=== PATIENT | female | born 1985 | race Caucasian/White ===

== ENCOUNTER 2016-06-09 18:44 | Emergency (ER) | payer OTHER ==
[~2016-06-09] VITALS: Ht 165.1 cm; Wt 118.5 kg
[~2016-06-09 18:44] MED LIST: DIAZ-90 PO; HYDR-906 PO; IBUP800T25 PO; OXYC-209 PO; PRED20TA PO; TRAM50TA2 PO
[2016-06-09 18:56] VITALS: Ht 165.1 cm; Wt 118.5 kg
[2016-06-09] MEDS ORDERED: CYCL-319 PO (22:52)
[2016-06-09] MEDS ORDERED: LORAZEPAM 2 MG INJ IV ONE (23:00)
[2016-06-09 23:06] LABS: ADD SCAN DIFF NO
[2016-06-09 23:07] LABS: BASOPHILS % 0.4 % (0.0-2.0); EOSINOPHILS # 0.1 10^3/ul (0.0-0.5); EOSINOPHILS % 0.8 % (0.0-7.0); HEMATOCRIT 40.5 % (37.0-47.0); LYMPHOCYTES # 2.4 10^3/ul (0.8-2.9); LYMPHOCYTES % 24.2 % (15.0-51.0); MEAN CORPUSCULAR HEMOGLOBIN 26.9 pg (29.0-33.0); MEAN CORPUSCULAR HGB CONC 32.1 g/dl (32.0-37.0); MEAN CORPUSCULAR VOLUME 83.9 fl (82.0-101.0); MEAN PLATELET VOLUME 10.9 fl (7.4-10.4); MONOCYTE # 0.5 10^3/ul (0.3-0.9); MONOCYTES % 4.7 % (0.0-11.0); NEUTROPHIL # 6.9 10^3/ul (1.6-7.5); NEUTROPHILS % 69.6 % (39.0-77.0); PLATELET COUNT 372 10^3/UL (140-415); RED BLOOD COUNT 4.83 10^6/ul (4.20-5.40); RED CELL DISTRIBUTION WIDTH 12.9 % (11.5-14.5)
[2016-06-09 23:16] LABS: CHLORIDE 100 mmol/L (97-110); POTASSIUM 3.6 mmol/L (3.5-5.1); SODIUM 142 mmol/L (135-144)
[2016-06-09 23:18] LABS: CREATININE 0.64 mg/dl (0.44-1.00)
[2016-06-09 23:19] LABS: ADD UMIC YES; ANION GAP 19 (8-16); BLOOD UREA NITROGEN 10 mg/dl (7-20); CALCIUM 9.6 mg/dl (8.4-10.2); CARBON DIOXIDE 27 mmol/L (21-31); GLUCOSE 111 mg/dl (70-220); URINE BILIRUBIN (Dip) NEGATIVE (NEGATIVE); URINE BLOOD (Dip) TRACE (NEGATIVE); URINE COLOR LT. YELLOW (YELLOW); URINE GLUCOSE (Dip) NEGATIVE (NEGATIVE); URINE KETONES (Dip) NEGATIVE (NEGATIVE); URINE LEUKOCYTE ESTERASE (Dip) NEGATIVE (NEGATIVE); URINE NITRITE (Dip) NEGATIVE (NEGATIVE); URINE TOTAL PROTEIN (Dip) NEGATIVE (NEGATIVE); URINE UROBILINOGEN (Dip) 0.2 E.U./dL (0.1-1.0)
[2016-06-09 23:28] LABS: SQUAMOUS EPITHELIAL CELL,UR FEW
[2016-06-09 23:29] LABS: B-TYPE NATRIURETIC PEPTIDE 45 PG/ML (0-125)
--- NOTE | 2016-06-09 23:30 | RADRPT ---
PROCEDURE: US DVT. CLINICAL INDICATION: Bilateral lower extremity pain and swelling. TECHNIQUE: Multiple longitudinal and transverse images of the bilateral lower extremity veins were obtained with gannon scale and color Doppler imaging. 2D grayscale measurements with compression, co lulu Doppler flow, and augmentation was performed. The calf veins were interrogated as well. COMPARISON: No prior studies are available for comparison. FINDINGS: The bilateral common femoral, superficial femoral and popliteal veins are normally compressible thro ughout. Color flow demonstrates normal filling of the vessel. Normal waveforms are visualized and there is normal response to augmentation. The calf veins are visualized and are equally unremarkabl e. IMPRESSION: 1. No evidence of a deep vein thrombosis involving either lower extremity. RPTAT: HFN .Nicolasa Cain MD, Date Time Electronically viewed and signed by .Nicolasa Cain MD, MD on 06/09/2016 23:30 .N/
[2016-06-09 23:38] LABS: TROPONIN-I < 0.012 ng/ml (0.00-0.12)
--- NOTE | 2016-06-10 00:15 | RADRPT ---
PROCEDURE: XR Chest. CLINICAL INDICATION: Syncope. TECHNIQUE: Single frontal chest x-ray. COMPARISON: Chest radiograph 08/12/2015. FINDINGS: The cardiomediastinal silhouette is unremarkable. No pneumothorax, pleural effusion or consolidation is seen. No acute osseous abnormality is noted. IMPRESSION: 1. No acute cardiopulmonary abnormality. RPTAT: HFN .Nicolasa Cain MD, Date Time Electronically viewed and signed by .Nicolasa Cain MD, on 06/10/2016 00:15 .N/
[2016-06-10] MEDS ORDERED: FURO-110 PO (00:29)
--- NOTE | 2016-06-10 00:29 | ERD ---
ER Documentation Chief Complaint Date/Time DATE: 06/10/16 TIME: 00:27 Chief Complaint Syncopal episode x3 today, SOB, Swollen LE, Dizziness HPI This is a 31-year-old female with syncopal episode today secondary to pain from her cervical radiculopathy. She does notice increased leg swelling over the past month. She has a history of DVT in the past. Denies any chest pain. Denies any focal neurological complaints. Denies any other current issues. ROS All systems reviewed and are negative except as per history of present illness. Medications Home Meds Active Scripts Oxycodone HCl/Acetaminophen (Percocet 10-325 mg Tablet) 1 Each Tablet, 1 EACH PO QID, #14 TAB Prov:MARIA ISABEL AGUILAR MD 12/17/15 Reported Medications Cyclobenzaprine Hcl* (Cyclobenzaprine Hcl*) 10 Mg Tablet, 10 MG PO QHS, #30 TAB 06/09/16 Discontinued Scripts Tramadol HCl (Tramadol HCl) 50 Mg Tablet, 50 MG PO Q6 Y for PAIN, #20 TAB Prov:MARIA ISABEL AGUILAR MD 12/17/15 Prednisone* (Prednisone*) 20 Mg Tab, 40 MG PO DAILY for 5 Days, TAB Prov:MARIA ISABEL AGUILAR MD 12/17/15 Diazepam* (Valium*) 5 Mg Tablet, 5 MG PO Q8 Y for ANXIETY, #10 TAB Prov:RODO MILLER NP 12/16/15 Hydrocodone/Acetaminophen ([place] 5-325 Tablet) 1 Each Tablet, 1 TAB PO Q6H Y for PAIN, #7 TAB Prov:RODO MILLER NP 12/16/15 Tramadol HCl (Tramadol HCl) 50 Mg Tablet, 50 MG PO Q4 Y for PAIN, #20 TAB Prov:KETTY PARDO 08/13/15 Ibuprofen* (Motrin*) 800 Mg Tab, 800 MG PO Q6, #30 TAB Prov:KETTY PARDO 08/13/15 Allergies Allergies: Coded Allergies: No Known Allergy (Unverified , 06/09/16) PMhx/Soc History of Surgery: Yes (R Cyst Removal) Anesthesia Reaction: No Hx Neurological Disorder: No Hx Respiratory Disorders: Yes (PE) Hx Cardiac Disorders: No Hx Psychiatric Problems: No Hx Miscellaneous Medical Probl: No Hx Alcohol Use: No Hx Substance Use: No Hx Tobacco Use: No Physical Exam Vitals Vital Signs Date Time Temp Pulse Resp B/P Pulse Ox O2 Delivery O2 Flow Rate FiO2 06/09/16 18:56 97.6 91 22 148/85 98 Physical Exam Const: [] Head: Atraumatic Eyes: Normal Conjunctiva ENT: Normal External Ears, Nose and Mouth. Neck: Full range of motion..~ No meningismus. Resp: Clear to auscultation bilaterally Cardio: Regular rate and rhythm, no murmurs Abd: Soft, non tender, non distended. Normal bowel sounds Skin: No petechiae or rashes Back: No midline or flank tenderness Ext: 1+ pitting edema Neur: Awake and alert Psych: Normal Mood and Affect Result Diagram: 06/09/160 06/09/16 2300 Results 24 hrs Laboratory Tests Test 06/09/16 22:59 06/09/16 23:00 Bedside Glucose 103mg/dL Anion Gap 19 B-Type Natriuretic Peptide 45PG/ML Basophils # 0.010^3/ul Basophils % 0.4% Blood Urea Nitrogen 10mg/dl Calcium Level 9.6mg/dl Carbon Dioxide Level 27mmol/L Chloride Level 100mmol/L Creatinine 0.64mg/dl Eosinophils # 0.110^3/ul Eosinophils % 0.8% Glucose Level 111mg/dl Hematocrit 40.5% Hemoglobin 13.0g/dl Lymphocytes # 2.410^3/ul Lymphocytes % 24.2% Mean Corpuscular Hemoglobin 26.9pg Mean Corpuscular Hemoglobin Concent 32.1g/dl Mean Corpuscular Volume 83.9fl Mean Platelet Volume 10.9fl Monocytes # 0.510^3/ul Monocytes % 4.7% Neutrophils # 6.910^3/ul Neutrophils % 69.6% Nucleated Red Blood Cells # 0.010^3/ul Nucleated Red Blood Cells % 0.0/100WBC Platelet Count 04293^3/UL Potassium Level 3.6mmol/L Red Blood Count 4.8310^6/ul Red Cell Distribution Width 12.9% Sodium Level 142mmol/L Troponin I < 0.012ng/ml Urine Bilirubin NEGATIVE Urine Clarity CLEAR Urine Color LT. YELLOW Urine Glucose NEGATIVE% Urine Hemoglobin TRACE Urine Ketones NEGATIVE Urine Leukocyte Esterase NEGATIVE Urine Microscopic RBC 2-5/HPF Urine Microscopic WBC 0-2/HPF Urine Nitrite NEGATIVE Urine Specific [place] 1.025 Urine Squamous Epithelial Cells FEW Urine Total Protein NEGATIVE Urine Urobilinogen 0.2 E.U./dL Urine pH 6.0 White Blood Count 10.010^3/ul Current Medications Medications (Trade) Dose Ordered Sig/[place] Route PRN Reason Start Time Stop Time Status Last Admin Dose Admin Lorazepam (Ativan) 1 mg ONCE ONCE IV 06/09/16 23:00 06/09/16 23:01 DC Procedures/MDM EKG: Rate/Rhythm: Normal Sinus Rhythm QRS, ST, T-waves: No changes consistent w/ acute ischemia Impression: No evidence of ischemia or arrhythmia Chest X-ray 1V Interpreted by me: Soft Tissue: No acute abnormalities Bones: No acute abnormalities Mediastinum/Cardiac Silhouette/Lungs: No acute abnormalities DVT study is negative Medical decision-making: Patient has some lower extremity edema. No evidence of DVT. At this point she is feeling better. Anxiety seems to be at play here as well. Patient responded well to Ativan. She will be discharged home with Lasix for her lower extremity edema. She is to follow-up with her primary care physician. Return for worsening symptomatology. is at bedside and concurs with plan. Departure Diagnosis: Primary Impression: Syncope Syncope type: psychogenic syncope Qualified Code: F48.8 - Psychogenic syncope Additional Impression: Lower extremity edema Laterality: bilateral Qualified Code: R60.0 - Bilateral edema of lower extremity Condition: Stable KETTY PARDO BethSteve Jun 10, 2016 00:29
[2016-06-10 00:54] VITALS: BP 125/89; PULSE 96; RESP 18; TEMP 98.4
== END 2016-06-10 01:02 | disposition home or self-care (01) ==
LOC: E/R 18:44
DX: F48.8 Other specified nonpsychotic mental disorders (principal); R60.0 Localized edema; R40.2142 Coma scale, eyes open, spontaneous, at arrival to emergency department; R40.2252 Coma scale, best verbal response, oriented, at arrival to emergency department; R40.2362 Coma scale, best motor response, obeys commands, at arrival to emergency department; R06.02 Shortness of breath
CPT/HCPCS: 36415; 71010; 80048; 81001; 82962; 83880; 84484; 85025; 93005; 93970; 96374; J2060; Z7502; Z7610; 81003

== ENCOUNTER 2016-09-17 10:43 | Inpatient (IN) | payer OTHER ==
[~2016-09-17] VITALS: Ht 165.1 cm; Wt 118.2 kg
[2016-09-17] VITALS (26 sets, daily range): BP systolic 130–170; BP diastolic 70–99; PULSE 96–129; RESP 18–26; Ht 165.1 cm; Wt 118.2 kg
[~2016-09-17 10:43] MED LIST changes: +CYCL-319 PO; -DIAZ-90 PO; +FURO-110 PO; -HYDR-906 PO; -IBUP800T25 PO; -PRED20TA PO; -TRAM50TA2 PO
[2016-09-17] MEDS ORDERED: POLYMYXIN/BACITRACIN 1L IRRIG ONE (11:44)
[2016-09-17] MEDS ORDERED: GELATIN SIZE 100 SPONGE ONE (11:44)
[2016-09-17] MEDS ORDERED: THROMBIN 5000 UNIT VIAL ONE (11:44)
[2016-09-17] MEDS ORDERED: LIDOCAINE 2%/EPI 30 ML INJ ONE (11:50)
[2016-09-17] MEDS ORDERED: SUCCINYLCHOLINE CHLORIDE 100 MG/5 ML SYG IV ONE (12:18)
[2016-09-17] MEDS ORDERED: PROPOFOL 20 ML ONE (12:18)
[2016-09-17] MEDS ORDERED: FENTAnyl 50 MCG/ML VIAL ONE (12:18)
[2016-09-17] MEDS ORDERED: CEFAZOLIN 1 GM INJ ONE (12:18)
[2016-09-17] MEDS ORDERED: ROCURONIUM 50 MG INJ ONE (12:18)
[2016-09-17] MEDS ORDERED: METOCLOPRAMIDE 10 MG INJ ONE (12:18)
[2016-09-17] MEDS ORDERED: ONDANSETRON 4 MG INJ ONE (12:18)
[2016-09-17] MEDS ORDERED: LABETALOL HCL 20MG INJ IV PRN (13:30)
[2016-09-17] MEDS ORDERED: MEPERIDINE 25 MG INJ IV PRN (13:30)
[2016-09-17] MEDS ORDERED: ONDANSETRON 4 MG INJ IV PRN ×2 (13:30→16:00)
[2016-09-17] MEDS ORDERED: HYDROmorphONE (0.2 MG/ML) 10ML SYG IV PRN ×2 (13:30)
[2016-09-17] MEDS ORDERED: hydrALAzine 20 MG INJ IV PRN (13:30)
[2016-09-17] MEDS ORDERED: FENTAnyl 50 MCG/ML VIAL IV PRN (13:30)
[2016-09-17] MEDS: HYDROmorphONE (0.2 MG/ML) 10ML SYG IV PRN ×3 (14:14→14:38)
[2016-09-17] MEDS: FENTAnyl 50 MCG/ML VIAL IV PRN ×2 (15:19→15:57)
[2016-09-17] MEDS ORDERED: HYDROCODONE/APAP (10/325) TAB NGT PRN (16:00)
[2016-09-17] MEDS ORDERED: NALOXONE (0.4 MG/ML) INJ IV PRN (16:00)
[2016-09-17] MEDS ORDERED: HYDROmorphONE 0.2 MG/ML PCA IV SCH (16:00)
[2016-09-17] MEDS ORDERED: HYDROmorphONE 0.2 MG/ML PCA ONE (16:01)
--- NOTE | 2016-09-17 17:17 | RADRPT ---
PROCEDURE: Intraoperative fluoroscopy. CLINICAL INDICATION: Intraoperative fluoroscopy during cervical spine surgery. TECHNIQUE: 4 spot intraoperative fluoroscopic images were provided. The images were reviewed on a high-resolution PACS workstation. COMPARISON: None available FINDINGS: Multiple spot intraoperative fluoroscopic views were provided during all cervical spine surgery. Th e images demonstrate initial radiodense marker at the level of C5. Subsequent images demonstrate an terior cervical discectomy and fusion at C5-6. The total fluoroscopy time was 7.3 seconds. IMPRESSION: 1. Multiple spot intraoperative fluoroscopic views during cervical spine fusion were provided. 2. Please see operative report of the same day for further information. RPTAT: HGAS .Isam Summers MD, Date Time Electronically viewed and signed by .Isma Summers MD, MD on 09/17/2016 17:16 .S/
[2016-09-17] MEDS: CEFAZOLIN 1 GM/50 ML (PMX) 50 ML IVPB SCH ×2 (17:34→21:04)
[2016-09-17] MEDS: DEXTROSE 5%-LR 1,000 ML IV SCH (17:35)
--- NOTE | 2016-09-17 18:00 | HP ---
DATE OF ADMISSION: 09/17/2016 CHIEF COMPLAINT AND HISTORY OF PRESENT ILLNESS: The patient is a 31-year-old female with history of severe cervical spondylosis with myelopathy and cord compression. The patient recently was seen by Dr. Yoo as an outpatient. MRI of the C-spine dated 08/15/2016 shows acute left-sided C5 to C6 disk herniation with evidence of cord compression. The patient was brought into the hospital today and underwent C5 to C6 partial vertebrectomy and interbody fusion and anterior plating. The patient does have postoperative pain and has been started on Dilaudid [employer]OR [employer]UCATION. The patient did not have any ch est pain or shortness of breath. No reported leg pain. The patient is able to move all extremities . No reported recent fever or chills. No reported recent dizziness or syncope. No reported recent urinary or bowel complaint. REVIEW OF SYSTEMS: The rest of review of systems unremarkable. PAST SURGICAL HISTORY: The patient is status post benign cyst removed from right breast. ALLERGIES: NONE. SOCIAL HISTORY: No smoking, no alcohol. FAMILY HISTORY: Noncontributory. PAST MEDICAL HISTORY: The patient has history of pulmonary embolism due to oral contraceptive medic ation in 2013. PHYSICAL EXAMINATION: GENERAL: The patient is conscious, awake. VITAL SIGNS: Temperature 98.4, pulse 96, respirations 18, blood pressure 125/89, O2 saturation 97% on room air. HEENT AND NECK: No eye discharge or redness. Nose and ears normal. Oropharynx and neck examinatio n is deferred due to cervical collar. CHEST: Fairly clear. CARDIOVASCULAR: S1, S2 normal. No murmur. ABDOMEN: Soft, nondistended, nontender. EXTREMITIES: No leg edema. NEUROLOGIC: The patient is awake, alert, fairly oriented, moves all extremities. LABORATORY DATA: Done prior to surgery, sodium 137, potassium 4.7, BUN 17, creatinine 0.9, glucose 97. Liver enzymes normal. Coagulation profile normal. Hemoglobin 12.4, platelets 336, WBC 7.7. E KG unremarkable. Chest x-ray unremarkable. IMPRESSION: Acute left-sided C5 to C6 disk herniation with evidence of cord compression, status pos t C5 to C6 partial vertebrectomy with interbody fusion and anterior plating. The patient apparently also has spondylosis and moderate to severe degree of secondary central stenosis at the C5 to C6 le nicolette on recent MRI. PLAN: The patient will be started on clear liquid diet, which will be advanced as tolerated. The p atient will have Dilaudid [employer]UC[employer]. The patient will also be given IV fluid, IV Zofran and SCDs for DVT prophylaxis. The patient will receive IV cefazolin as per protocol. Will resume Percocet once her pain is controlled with the SUPERVISOR [employer]UCATION. Plan of care discussed with the patient's family. Dictated By: DELFINA HOOD/GERSON Conf#: [id number] DID#: [id number]
[2016-09-17] MEDS: HYDROmorphONE 0.2 MG/ML PCA IV SCH (19:52)
[2016-09-17] MEDS: CYCLOBENZAPRINE 10 MG TAB PO SCH (20:34)
[2016-09-17] MEDS: LORAZEPAM 2 MG INJ IV PRN (21:03)
[2016-09-17] MEDS ORDERED: METOPROLOL 5 MG INJ IV PRN (23:00)
[2016-09-18] VITALS (12 sets, daily range): BP systolic 125–150; BP diastolic 81–96; PULSE 63–130; RESP 16–20
[2016-09-18] MEDS: ONDANSETRON 4 MG INJ IV PRN ×2 (01:36→09:27)
[2016-09-18] MEDS: DEXTROSE 5%-LR 1,000 ML IV SCH ×2 (05:20→16:56)
[2016-09-18] MEDS: CEFAZOLIN 1 GM/50 ML (PMX) 50 ML IVPB SCH ×2 (06:18→13:46)
[2016-09-18] MEDS: HYDROmorphONE 0.2 MG/ML PCA IV SCH ×2 (06:56→15:08)
--- NOTE | 2016-09-18 06:59 | PREOPHP ---
DATE OF ADMISSION: 09/17/2016 HISTORY OF PRESENT ILLNESS: The patient is a 31 years of age female, arrived to the office with a c omplaint of neck pain, pain going to the shoulder down the left arm with weakness in the left hand, numbness in the 3rd, 4th, and 5th digits of the left hand. The patient ____ severe spondylosis with myelopathy. Conservative management was offered to the patient in the form of epidural injections which did not improve function. The patient was getting worse. The patient as developing more weak ness in the hand, was having more pain in the neck. She also failed physical therapy as well as the pain management. PAST MEDICAL HISTORY: Unremarkable. PAST SURGICAL HISTORY: Unremarkable. SOCIAL HISTORY: Denies use of drugs, alcohol, tobacco. ALLERGIES: PER CHART. MEDICATIONS: ____. FAMILY HISTORY: Unremarkable. REVIEW OF SYSTEMS: Additional 10-point review of systems conducted. Pertinent positives in the HPI , otherwise negative. PHYSICAL EXAMINATION: GENERAL: The patient is awake, alert, oriented, follows commands properly. HEENT: Head is atraumatic, normocephalic ____ intact. Pupils reactive. ____. Nose, sinuses, jesus th: No lesions, no bleeding. NECK: Supple, no thyromegaly, no JVD. ____. PULMONARY: ____. CARDIOVASCULAR: No JVD, no pedal edema noted. ABDOMEN: Soft without guarding ____. NEUROLOGIC: She is awake, alert, oriented. Follows commands appropriately. ____. Cranial nerves II through XII intact. No gross abnormalities noted. EXTREMITIES: Upper: Left deltoid 4/5 strength. Left bicep, tricep, ____ overall strength is abou t 4/5 ____ the patient has good strength and sensation. The patient has reduced sensation in the f irst 3 digits of the left hand. ____ unremarkable. Lower: She is able to move both lower extremi ties at the level of the hips ____ strength is equal, sensation is intact. IMAGING FINDINGS: MRI of the cervical spine on 08/15/2016, she has C5 to C6 severe spondylosis and cord compression. IMPRESSION: The patient is a pleasant 31-year-old female who has C5 to C6 severe spondylosis with m yelopathy and cord compression. RECOMMENDATION: For the patient to undergo surgical intervention in the form of C5-C6 partial verte brectomy with diskectomy, interbody fusion, and anterior plating. The procedure was described to th e patient in great detail. Complications were explained. The patient wants to go ahead and proceed with surgical intervention. The patient will be admitted to the hospital thereafter and for furthe r care and management. Dictated By: TAM HASSAN/GERSON Conf#: [id number] DID#: [id number]
[2016-09-18] MEDS: DIPHENHYDRAMINE 50 MG INJ IV PRN ×2 (12:15→17:01)
[2016-09-18] MEDS: OXYCODONE/ACETAMINOPHEN (5/325) TAB PO PRN ×2 (12:15→16:57)
--- NOTE | 2016-09-18 14:29 | RADRPT ---
Vent Rate: 125 bpm RR Interval: 0 msec [place] Interval: 184 msec QRS Duration: 78 msec QT Interval: 288 msec QTC Interval: 415 msec P-R-T [place]: 29 - 34 - 5 degrees Sinus tachycardia Cannot rule out Inferior infarct , age undetermined Abnormal ECG Electronically Signed By: Solis Ortez [id number]
--- NOTE | 2016-09-18 14:38 | RADRPT ---
Vent Rate: 102 bpm RR Interval: 0 msec MI Interval: 188 msec QRS Duration: 84 msec QT Interval: 332 msec QTC Interval: 432 msec P-R-T [place]: 29 - 37 - 9 degrees Sinus tachycardia Nonspecific T wave abnormality Abnormal ECG Electronically Signed By: Solis Ortez [id number]
--- NOTE | 2016-09-18 15:07 | PN ---
Date/Time of Note Date/Time of Note DATE: 09/18/16 TIME: 15:02 Assessment/Plan VTE Prophylaxis VTE Prophylaxis Intervention: SCD's Lines/Catheters IV Catheter Type (from Nrs): Peripheral IV Urinary Cath still in place: No Assessment/Plan Chief Complaint/Hosp Course Patient's complains of pain, encouraged to take Percocet in addition to FIBERGLASS LAMINATOR Dilaudid, patient is awake alert, complains of mild nausea relieved by Zofran, denies any vomiting denies chest pain denies shortness of breath. Problems: Assessment/Plan - Acute left-sided C5 to C6 disk herniation with evidence of cord compression, status post C5 to C6 partial vertebrectomy with interbody fusion and anterior plating. Continue Dilaudid FIBERGLASS LAMINATOR for pain Zofran as needed for nausea, follow-up surgical recommendations. Incentive spirometer every hour while patient is awake. - Morbid obesity. Further recommendations based on clinical course. Plan of care discussed with Dr. Hall. Exam/Review of Systems Vital Signs Vitals Vital Signs Date Time Temp Pulse Resp B/P Pulse Ox O2 Delivery O2 Flow Rate FiO2 09/18/16 12:34 101 09/18/16 11:22 97.5 19 142/96 97 09/18/16 08:30 Nasal Cannula 2.0 Intake and Output 09/17/16 09/17/16 09/18/16 15:00 23:00 07:00 Intake Total 700 ml 590 ml 890 ml Output Total 20 ml 500 ml 350 ml Balance 680 ml 90 ml 540 ml Exam Constitutional: alert, oriented Head: normocephalic Respiratory: other (Status post surgery with dry clean and intact dressing and cervical collar) Cardiovascular: other (Slightly tachycardic), regular rate and rhythm Gastrointestinal: non-tender, soft Extremities: normal pulses Neurological: nl mental status Results Results 24 hrs Laboratory Tests Test 09/18/16 06:38 Lab Scanned Report REFERENCE LAB Medications Medications Current Medications Dextrose/Lactated Ringer's 1,000 ml @ 75 mls/hr [id number] IV Last administered on 09/17/16 17:35; Admin Dose 75 MLS/HR; Start 09/17/16 at 16:00 Cefazolin Sodium (Ancef 1 Gm/50 ml (Pmx)) 50 ml @ 100 mls/hr Q8 IVPB Last administered on 09/18/16 13:46; Admin Dose 100 MLS/HR; Start 09/17/16 at 16:00 ; Stop 09/18/16 at 16:00 Naloxone HCl (Narcan) 0.2 mg PRN PRN IV DECREASED REPIRATORY RATE; Start at 16:00 Ondansetron HCl (Zofran Inj) 4 mg Q6H PRN IV NAUSEA AND/OR VOMITING Last administered on 09/18/16 09:27; Admin Dose 4 MG; Start 09/17/16 at 16:00 Diphenhydramine HCl (Benadryl) 25 mg Q6H PRN IV ITCHING Last administered on 12:15; Admin Dose 25 MG; Start 09/17/16 at 16:00 Miscellaneous Information 1. Discontinue FIBERGLASS LAMINATOR... FIBERGLASS LAMINATOR IV ; Start 09/17/16 at 16:00 Oxycodone/ Acetaminophen (Percocet (5/ 325)) 1 tab Q4H PRN PO PAIN Last administered on 09/18/16 12:15; Admin Dose 1 TAB; Start 09/17/16 at 17:30 Oxycodone/ Acetaminophen (Percocet (5/ 325)) 2 tab Q4H PRN PO PAIN; Start 09/17 at 17:30 Cyclobenzaprine HCl (Flexeril) 10 mg QHS PO Last administered on 09/17/16 20: 34; Admin Dose 10 MG; Start 09/17/16 at 21:00 Hydromorphone HCl (Dilaudid FIBERGLASS LAMINATOR) 6 mg Q4PCA IV Last administered on 09/18/16 06:56; Admin Dose 6 MG; Start 09/17/16 at 20:00; Stop 09/19/16 at 17:00 Lorazepam (Ativan) 1 mg Q6H PRN IV ANXIETY Last administered on 09/17/16 21:03 ; Admin Dose 1 MG; Start 09/17/16 at 20:30 Clonidine (Catapres) 0.1 mg Q6H PRN PO ELEVATED BLOOD PRESSURE; Start 09/17/16 at 20:30 Metoprolol Tartrate (Lopressor) 5 mg Q4H PRN IV ELEVATED BLOOD PRESSURE; Start 09/17/16 at 23:00 Diphenhydramine HCl (Benadryl) 50 mg Q6H PRN PO ITCHING; Start 09/18/16 at 11: 30 KUSH FONG Sep 18, 2016 15:07
[2016-09-18 15:38] LABS: ADD SCAN DIFF NO
[2016-09-18 15:41] LABS: BASOPHILS % 0.5 % (0.0-2.0); EOSINOPHILS # 0.1 10^3/ul (0.0-0.5); EOSINOPHILS % 0.7 % (0.0-7.0); HEMATOCRIT 34.2 % (37.0-47.0); HEMOGLOBIN 10.9 g/dl (12.0-16.0); LYMPHOCYTES # 1.7 10^3/ul (0.8-2.9); LYMPHOCYTES % 20.9 % (15.0-51.0); MEAN CORPUSCULAR HEMOGLOBIN 27.1 pg (29.0-33.0); MEAN CORPUSCULAR HGB CONC 31.9 g/dl (32.0-37.0); MEAN CORPUSCULAR VOLUME 85.1 fl (82.0-101.0); MEAN PLATELET VOLUME 10.9 fl (7.4-10.4); MONOCYTE # 0.6 10^3/ul (0.3-0.9); MONOCYTES % 7.1 % (0.0-11.0); NEUTROPHIL # 5.8 10^3/ul (1.6-7.5); NEUTROPHILS % 70.6 % (39.0-77.0); PLATELET COUNT 284 10^3/UL (140-415); RED BLOOD COUNT 4.02 10^6/ul (4.20-5.40); RED CELL DISTRIBUTION WIDTH 13.6 % (11.5-14.5); WHITE BLOOD COUNT 8.2 10^3/ul (4.8-10.8)
[2016-09-18 16:01] LABS: CALCIUM 9.2 mg/dl (8.4-10.2); CREATININE 0.75 mg/dl (0.44-1.00); POTASSIUM 3.7 mmol/L (3.5-5.1)
[2016-09-18] MEDS: CYCLOBENZAPRINE 10 MG TAB PO SCH (20:42)
[2016-09-18] MEDS: HYDROmorphONE 1 MG/ML SYG IV PRN (20:43)
[2016-09-18] MEDS: LORAZEPAM 2 MG INJ IV PRN (22:02)
[2016-09-19] VITALS (12 sets, daily range): BP systolic 116–146; BP diastolic 66–91; PULSE 96–112; RESP 18–20
[2016-09-19] MEDS: HYDROmorphONE 1 MG/ML SYG IV PRN ×5 (01:00→23:05)
[2016-09-19] MEDS: ONDANSETRON 4 MG INJ IV PRN ×3 (01:00→20:05)
[2016-09-19] MEDS: OXYCODONE/ACETAMINOPHEN (5/325) TAB PO PRN ×4 (04:03→20:37)
[2016-09-19] MEDS: DEXTROSE 5%-LR 1,000 ML IV SCH ×2 (05:56→21:20)
[2016-09-19 06:06] LABS: ADD SCAN DIFF NO
[2016-09-19 06:23] LABS: BASOPHILS % 0.5 % (0.0-2.0); EOSINOPHILS % 0.5 % (0.0-7.0); HEMATOCRIT 33.1 % (37.0-47.0); HEMOGLOBIN 10.7 g/dl (12.0-16.0); LYMPHOCYTES # 1.4 10^3/ul (0.8-2.9); LYMPHOCYTES % 19.2 % (15.0-51.0); MEAN CORPUSCULAR HEMOGLOBIN 27.4 pg (29.0-33.0); MEAN CORPUSCULAR HGB CONC 32.3 g/dl (32.0-37.0); MEAN CORPUSCULAR VOLUME 84.7 fl (82.0-101.0); MEAN PLATELET VOLUME 11.2 fl (7.4-10.4); MONOCYTE # 0.4 10^3/ul (0.3-0.9); MONOCYTES % 5.6 % (0.0-11.0); NEUTROPHIL # 5.4 10^3/ul (1.6-7.5); NEUTROPHILS % 73.9 % (39.0-77.0); PLATELET COUNT 287 10^3/UL (140-415); RED BLOOD COUNT 3.91 10^6/ul (4.20-5.40); RED CELL DISTRIBUTION WIDTH 13.5 % (11.5-14.5); WHITE BLOOD COUNT 7.3 10^3/ul (4.8-10.8)
[2016-09-19 06:37] LABS: CALCIUM 9.4 mg/dl (8.4-10.2); CREATININE 0.59 mg/dl (0.44-1.00); POTASSIUM 3.8 mmol/L (3.5-5.1)
[2016-09-19] MEDS: DIPHENHYDRAMINE 50 MG INJ IV PRN (09:27)
[2016-09-19] MEDS: LORAZEPAM 2 MG INJ IV PRN ×2 (12:16→23:49)
--- NOTE | 2016-09-19 12:16 | CONS ---
Date/Time of Note Date/Time of Note DATE: 09/19/16 TIME: 12:15 Assessment/Plan Assessment/Plan Additional Assessment/Plan seen/examined awake/alert/follows/moves all co pain shoulders with difficulty with left shoulder rom sp cervical partial vertebrectomy with fusion decadron mri c spine Consultation Date/Type/Reason Admit Date/Time Sep 17, 2016 at 10:43 Initial Consult Date Exam/Review of Systems Vital Signs Vitals Vital Signs Date Time Temp Pulse Resp B/P Pulse Ox O2 Delivery O2 Flow Rate FiO2 09/19/16 11:25 98.5 96 18 116/69 99 09/19/16 07:16 Nasal Cannula 2.0 Intake and Output 09/18/16 09/18/16 09/19/16 15:00 23:00 07:00 Intake Total 50 ml 1000 ml 900 ml Balance 50 ml 1000 ml 900 ml Results Result Diagram: 09/19/16 0543 09/19/16 0543 Results 24 hrs Laboratory Tests Test 09/18/16 15:30 09/19/16 05:43 White Blood Count 8.2 7.3 Red Blood Count 4.02 L 3.91 L Hemoglobin 10.9 L 10.7 L Hematocrit 34.2 L 33.1 L Mean Corpuscular Volume 85.1 84.7 Mean Corpuscular Hemoglobin 27.1 L 27.4 L Mean Corpuscular Hemoglobin Concent 31.9 L 32.3 Red Cell Distribution Width 13.6 13.5 Platelet Count 284 # 287 Mean Platelet Volume 10.9 H 11.2 H Neutrophils % 70.6 73.9 Lymphocytes % 20.9 19.2 Monocytes % 7.1 5.6 Eosinophils % 0.7 0.5 Basophils % 0.5 0.5 Nucleated Red Blood Cells % 0.0 0.0 Neutrophils # 5.8 5.4 Lymphocytes # 1.7 1.4 Monocytes # 0.6 0.4 Eosinophils # 0.1 0.0 Basophils # 0.0 0.0 Nucleated Red Blood Cells # 0.0 0.0 Sodium Level 139 138 Potassium Level 3.7 3.8 Chloride Level 101 102 Carbon Dioxide Level 30 26 Anion Gap 12 14 Blood Urea Nitrogen 6 L 5 L Creatinine 0.75 0.59 Glucose Level 111 113 Calcium Level 9.2 9.4 Medications Medications Current Medications Dextrose/Lactated Ringer's (D5-Lr) 1,000 ml @ 75 mls/hr [id number] IV Last administered on 09/19/16 05:56; Admin Dose 75 MLS/HR; Start 09/17/16 at 16:00 Naloxone HCl (Narcan) 0.2 mg PRN PRN IV DECREASED REPIRATORY RATE; Start at 16:00 Ondansetron HCl (Zofran Inj) 4 mg Q6H PRN IV NAUSEA AND/OR VOMITING Last administered on 09/19/16 09:25; Admin Dose 4 MG; Start 09/17/16 at 16:00 Diphenhydramine HCl (Benadryl) 25 mg Q6H PRN IV ITCHING Last administered on 09:27; Admin Dose 25 MG; Start 09/17/16 at 16:00 Miscellaneous Information 1. Discontinue COMPUTERIZED MILL MILL RECORDER... COMPUTERIZED MILL MILL RECORDER IV ; Start 09/17/16 at 16:00 Oxycodone/ Acetaminophen (Percocet (5/ 325)) 1 tab Q4H PRN PO PAIN Last administered on 09/18/16 12:15; Admin Dose 1 TAB; Start 09/17/16 at 17:30 Oxycodone/ Acetaminophen (Percocet (5/ 325)) 2 tab Q4H PRN PO PAIN Last administered on 09/19/16 08:39; Admin Dose 2 TAB; Start 09/17/16 at 17:30 Cyclobenzaprine HCl (Flexeril) 10 mg QHS PO Last administered on 09/18/16 20: 42; Admin Dose 10 MG; Start 09/17/16 at 21:00 Lorazepam (Ativan) 1 mg Q6H PRN IV ANXIETY Last administered on 09/18/16 22:02 ; Admin Dose 1 MG; Start 09/17/16 at 20:30 Clonidine (Catapres) 0.1 mg Q6H PRN PO ELEVATED BLOOD PRESSURE; Start 09/17/16 at 20:30 Metoprolol Tartrate (Lopressor) 5 mg Q4H PRN IV ELEVATED BLOOD PRESSURE; Start 09/17/16 at 23:00 Diphenhydramine HCl (Benadryl) 50 mg Q6H PRN PO ITCHING; Start 09/18/16 at 11: 30 Hydromorphone HCl (Dilaudid) 1 mg Q4H PRN IV SEVERE PAIN LEVEL 7-10 Last administered on 09/19/16t 11:30; Admin Dose 1 MG; Start 09/18/16 at 20:00 GIANCARLO DIAZ PA-C Sep 19, 2016 12:16
--- NOTE | 2016-09-19 13:56 | RADRPT ---
PROCEDURE: MR Cervical Spine without contrast. CLINICAL INDICATION: Neck and left arm pain. History of cervical fusion. Rule TECHNIQUE: An MRI of the cervical spine was performed on a 1.5 [place]ingo scanner utilizing the follow ing sequences: Pre and postcontrast sagittal and axial T1 weighted, sagittal and axial T2 weighted, and sagittal T2 weighted with fat saturation. COMPARISON: No prior study for comparison. The FINDINGS:. 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 Anterior cervical discectomy fusion of C5 and C6. The vertebral bodies are normal in height and signal inten sity. The cervical cord is normal in caliber and signal intensity. The craniocervical junction is u nremarkable. C2-3: The intervertebral disc is normal without foraminal or canal narrowing. C3-4: Mild disk desiccation loss of disk height with small central disk protrusion measuring 1-2 mm in AP dimension. This effaces the CSF along the ventral aspect of the cervical spinal cord with mod erate central canal stenosis of 7 mm in AP dimension. No foraminal stenosis. C4-5: Mild disk desiccation and mild to moderate loss of disk height and minimal posterior disk bulg ing. This effaces the CSF along the ventral aspect of the cervical spinal cord resulting in moderat e central canal stenosis of 7 mm in AP dimension. No significant foraminal stenosis . C5-6: Intact ACDF posterior spondylitic ridging and bilateral uncovertebral joint hypertrophy witho ut foraminal stenosis. Moderate central canal narrowing 7 mm in AP dimension C6-7: Intact ACDF with anatomic alignment. Mild disk desiccation without loss of disk height. Rule small central disk protrusion measuring 2 mm in AP dimension. Moderate central canal stenosis of 6 .7 mm in AP fashion. C7-T1: The intervertebral disc is normal without foraminal or canal narrowing. No paraspinal soft tissue abnormality. IMPRESSION: 1. 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 This results in moderate central canal stenosis of 7 meters in AP dim ension from C3-C4 through C5-C6 and 6.7 mm in AP dimension at C6-C7. Stenosis at any level. 2. Intact ACDF C5-C6 with anatomic alignment. 3. Normal appearance of the cervical spinal cord. RPTAT:AAJJ Shirley Ariza Physician Date Time Electronically viewed and signed by Shirley Ariza Physician on 09/19/2016 13:56 JANELLE/
[2016-09-19] MEDS ORDERED: HYDROCODONE/APAP (5/325) TAB PO PRN ×2 (17:00)
[2016-09-19] MEDS: DEXAMETHASONE 4 MG/ML 1 ML INJ IV SCH ×2 (17:54→23:51)
--- NOTE | 2016-09-19 20:42 | PN ---
Date/Time of Note Date/Time of Note DATE: 09/19/16 TIME: 15:12 Assessment/Plan VTE Prophylaxis VTE Prophylaxis Intervention: other Lines/Catheters IV Catheter Type (from Nrsg): Peripheral IV Urinary Cath still in place: No Assessment/Plan Assessment/Plan - Acute left-sided C5 to C6 disk herniation with evidence of cord compression, status post C5 to C6 partial vertebrectomy with interbody fusion and anterior plating. 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 Incentive spirometer every hour while patient is awake. - Morbid obesity. Further recommendations based on clinical course. Plan of care discussed with Dr. Hall. Subjective 24 Hr Interval Summary Free Text/Dictation resting, afebrile, Exam/Review of Systems Vital Signs Vitals Vital Signs Date Time Temp Pulse Resp B/P Pulse Ox O2 Delivery O2 Flow Rate FiO2 09/19/16 15:00 98.1 113 18 120/78 99 09/19/16 07:16 Nasal Cannula 2.0 Intake and Output 09/18/16 09/18/16 09/19/16 15:00 23:00 07:00 Intake Total 50 ml 1000 ml 900 ml Balance 50 ml 1000 ml 900 ml Results Result Diagram: 09/19/16 0543 09/19/16 0543 Results 24 hrs Laboratory Tests Test 09/18/16 15:30 09/19/16 05:43 White Blood Count 8.2 7.3 Red Blood Count 4.02 L 3.91 L Hemoglobin 10.9 L 10.7 L Hematocrit 34.2 L 33.1 L Mean Corpuscular Volume 85.1 84.7 Mean Corpuscular Hemoglobin 27.1 L 27.4 L Mean Corpuscular Hemoglobin Concent 31.9 L 32.3 Red Cell Distribution Width 13.6 13.5 Platelet Count 284 # 287 Mean Platelet Volume 10.9 H 11.2 H Neutrophils % 70.6 73.9 Lymphocytes % 20.9 19.2 Monocytes % 7.1 5.6 Eosinophils % 0.7 0.5 Basophils % 0.5 0.5 Nucleated Red Blood Cells % 0.0 0.0 Neutrophils # 5.8 5.4 Lymphocytes # 1.7 1.4 Monocytes # 0.6 0.4 Eosinophils # 0.1 0.0 Basophils # 0.0 0.0 Nucleated Red Blood Cells # 0.0 0.0 Sodium Level 139 138 Potassium Level 3.7 3.8 Chloride Level 101 102 Carbon Dioxide Level 30 26 Anion Gap 12 14 Blood Urea Nitrogen 6 L 5 L Creatinine 0.75 0.59 Glucose Level 111 113 Calcium Level 9.2 9.4 Medications Medications Current Medications Dextrose/Lactated Ringer's (D5-Lr) 1,000 ml @ 75 mls/hr [id number] IV Last administered on 09/19/16 05:56; Admin Dose 75 MLS/HR; Start 09/17/16 at 16:00 Naloxone HCl (Narcan) 0.2 mg PRN PRN IV DECREASED REPIRATORY RATE; Start at 16:00 Ondansetron HCl (Zofran Inj) 4 mg Q6H PRN IV NAUSEA AND/OR VOMITING Last administered on 09/19/16 09:25; Admin Dose 4 MG; Start 09/17/16 at 16:00 Diphenhydramine HCl (Benadryl) 25 mg Q6H PRN IV ITCHING Last administered on 09:27; Admin Dose 25 MG; Start 09/17/16 at 16:00 Miscellaneous Information 1. Discontinue COMMUNICATIONS TOWER TECHNICIAN... COMMUNICATIONS TOWER TECHNICIAN IV ; Start 09/17/16 at 16:00 Oxycodone/ Acetaminophen (Percocet (5/ 325)) 1 tab Q4H PRN PO PAIN Last administered on 09/18/16 12:15; Admin Dose 1 TAB; Start 09/17/16 at 17:30 Oxycodone/ Acetaminophen (Percocet (5/ 325)) 2 tab Q4H PRN PO PAIN Last administered on 09/19/16 14:27; Admin Dose 2 TAB; Start 09/17/16 at 17:30 Cyclobenzaprine HCl (Flexeril) 10 mg QHS PO Last administered on 09/18/16 20: 42; Admin Dose 10 MG; Start 09/17/16 at 21:00 Lorazepam (Ativan) 1 mg Q6H PRN IV ANXIETY Last administered on 09/19/16 12:16 ; Admin Dose 1 MG; Start 09/17/16 at 20:30 Clonidine (Catapres) 0.1 mg Q6H PRN PO ELEVATED BLOOD PRESSURE; Start 09/17/16 at 20:30 Metoprolol Tartrate (Lopressor) 5 mg Q4H PRN IV ELEVATED BLOOD PRESSURE; Start 09/17/16 at 23:00 Diphenhydramine HCl (Benadryl) 50 mg Q6H PRN PO ITCHING; Start 09/18/16 at 11: 30 Hydromorphone HCl (Dilaudid) 1 mg Q4H PRN IV SEVERE PAIN LEVEL 7-10 Last administered on 09/19/16t 11:30; Admin Dose 1 MG; Start 09/18/16 at 20:00 Dexamethasone (Decadron) 4 mg Q6 IV ; Start 09/19/16 at 18:00 MANSOOR MARRERO Sep 19, 2016 15:23
[2016-09-19] MEDS: CYCLOBENZAPRINE 10 MG TAB PO SCH (22:29)
[2016-09-20] VITALS (11 sets, daily range): BP systolic 128–134; BP diastolic 70–90; PULSE 90–117; RESP 15–19
[2016-09-20] MEDS: DEXAMETHASONE 4 MG/ML 1 ML INJ IV SCH ×3 (06:04→17:31)
[2016-09-20 07:35] LABS: ADD SCAN DIFF NO
[2016-09-20 07:46] LABS: BASOPHILS % 0.2 % (0.0-2.0); HEMATOCRIT 37.3 % (37.0-47.0); LYMPHOCYTES # 0.9 10^3/ul (0.8-2.9); LYMPHOCYTES % 9.6 % (15.0-51.0); MEAN CORPUSCULAR HGB CONC 32.2 g/dl (32.0-37.0); MEAN CORPUSCULAR VOLUME 83.8 fl (82.0-101.0); MEAN PLATELET VOLUME 11.6 fl (7.4-10.4); MONOCYTE # 0.1 10^3/ul (0.3-0.9); MONOCYTES % 1.2 % (0.0-11.0); NEUTROPHILS % 88.7 % (39.0-77.0); PLATELET COUNT 383 10^3/UL (140-415); RED BLOOD COUNT 4.45 10^6/ul (4.20-5.40); RED CELL DISTRIBUTION WIDTH 12.9 % (11.5-14.5)
[2016-09-20 07:57] LABS: CREATININE 0.52 mg/dl (0.44-1.00); POTASSIUM 3.9 mmol/L (3.5-5.1)
[2016-09-20] MEDS: DEXTROSE 5%-LR 1,000 ML IV SCH (08:00)
[2016-09-20] MEDS: HYDROmorphONE 1 MG/ML SYG IV PRN ×4 (08:03→23:12)
[2016-09-20] MEDS: LORAZEPAM 2 MG INJ IV PRN (08:03)
[2016-09-20] MEDS: OXYCODONE/ACETAMINOPHEN (5/325) TAB PO PRN ×3 (12:25→20:55)
[2016-09-20] MEDS ORDERED: GUAIFENESIN 20 MG/ML 5ML CUP PO PRN (15:30)
[2016-09-20] MEDS ORDERED: SALINE 0.65% 45 ML NAS SPRAY NASAL PRN (15:30)
[2016-09-20] MEDS: DIPHENHYDRAMINE 50 MG INJ IV PRN (17:31)
[2016-09-20] MEDS: ONDANSETRON 4 MG INJ IV PRN ×2 (17:36→23:13)
--- NOTE | 2016-09-20 17:43 | PN ---
Date/Time of Note Date/Time of Note DATE: 09/20/16 TIME: 17:42 Assessment/Plan Lines/Catheters IV Catheter Type (from Nrsg): Peripheral IV Urinary Cath still in place: No Assessment/Plan Assessment/Plan - Acute left-sided C5 to C6 disk herniation with evidence of cord compression, status post C5 to C6 partial vertebrectomy with interbody fusion and anterior plating. Continue Dilaudid CPHT for pain Zofran as needed for nausea, follow-up surgical recommendations. Incentive spirometer every hour while patient is awake. - Morbid obesity. - weight management Further recommendations based on clinical course. Plan of care discussed with Dr. Hall. Subjective 24 Hr Interval Summary Respiratory: no complaints Cardiovascular: no complaints Gastrointestinal: no complaints Genitourinary: no complaints Musculoskeletal: no complaints Neurologic: other (neck pain) Exam/Review of Systems Vital Signs Vitals Vital Signs Date Time Temp Pulse Resp B/P Pulse Ox O2 Delivery O2 Flow Rate FiO2 09/20/16 16:35 117 09/20/16 12:27 97.9 16 132/70 91 Nasal Cannula 09/20/16 08:15 2.0 Intake and Output 09/19/16 09/19/16 09/20/16 15:00 23:00 07:00 Intake Total 1000 ml Balance 1000 ml Exam Constitutional: alert, well developed Neck: other Respiratory: clear to auscultation, normal air movement Cardiovascular: nl pulses, regular rate and rhythm Gastrointestinal: non-tender, soft Extremities: normal pulses Neurological: nl mental status, nl speech Results Result Diagram: 09/20/16 0626 09/20/16 0626 Results 24 hrs Laboratory Tests Test 09/20/16 06:11 09/20/16 06:26 Lab Scanned Report REFERENCE LAB White Blood Count 9.0 # Red Blood Count 4.45 Hemoglobin 12.0 Hematocrit 37.3 Mean Corpuscular Volume 83.8 Mean Corpuscular Hemoglobin 27.0 L Mean Corpuscular Hemoglobin Concent 32.2 Red Cell Distribution Width 12.9 Platelet Count 383 # Mean Platelet Volume 11.6 H Neutrophils % 88.7 H Lymphocytes % 9.6 L Monocytes % 1.2 Eosinophils % 0.0 Basophils % 0.2 Nucleated Red Blood Cells % 0.0 Neutrophils # 8.0 H Lymphocytes # 0.9 Monocytes # 0.1 L Eosinophils # 0.0 Basophils # 0.0 Nucleated Red Blood Cells # 0.0 Sodium Level 137 Potassium Level 3.9 Chloride Level 101 Carbon Dioxide Level 26 Anion Gap 14 Blood Urea Nitrogen 5 L Creatinine 0.52 Glucose Level 187 Calcium Level 10.0 Medications Medications Current Medications Naloxone HCl (Narcan) 0.2 mg PRN PRN IV DECREASED REPIRATORY RATE; Start at 16:00 Ondansetron HCl (Zofran Inj) 4 mg Q6H PRN IV NAUSEA AND/OR VOMITING Last administered on 09/20/16 17:36; Admin Dose 4 MG; Start 09/17/16 at 16:00 Diphenhydramine HCl (Benadryl) 25 mg Q6H PRN IV ITCHING Last administered on 17:31; Admin Dose 25 MG; Start 09/17/16 at 16:00 Miscellaneous Information 1. Discontinue CPHT... CPHT IV ; Start 09/17/16 at 16:00 Oxycodone/ Acetaminophen (Percocet (5/ 325)) 1 tab Q4H PRN PO PAIN Last administered on 09/20/16 16:19; Admin Dose 1 TAB; Start 09/17/16 at 17:30 Oxycodone/ Acetaminophen (Percocet (5/ 325)) 2 tab Q4H PRN PO PAIN Last administered on 09/20/16 12:25; Admin Dose 2 TAB; Start 09/17/16 at 17:30 Cyclobenzaprine HCl (Flexeril) 10 mg QHS PO Last administered on 09/19/16 22: 29; Admin Dose 10 MG; Start 09/17/16 at 21:00 Lorazepam (Ativan) 1 mg Q6H PRN IV ANXIETY Last administered on 09/20/16 08:03 ; Admin Dose 1 MG; Start 09/17/16 at 20:30 Clonidine (Catapres) 0.1 mg Q6H PRN PO ELEVATED BLOOD PRESSURE; Start 09/17/16 at 20:30 Metoprolol Tartrate (Lopressor) 5 mg Q4H PRN IV ELEVATED BLOOD PRESSURE; Start 09/17/16 at 23:00 Diphenhydramine HCl (Benadryl) 50 mg Q6H PRN PO ITCHING; Start 09/18/16 at 11: 30 Hydromorphone HCl (Dilaudid) 1 mg Q4H PRN IV SEVERE PAIN LEVEL 7-10 Last administered on 09/20/16 08:03; Admin Dose 1 MG; Start 09/18/16 at 20:00 Dexamethasone (Decadron) 4 mg Q6 IV Last administered on 09/20/16 17:31; Admin Dose 4 MG; Start 09/19/16 at 18:00 Sodium Chloride (Deep Sea) 1 spray BID PRN NASAL nasal dryness; Start 09/20/16 at 15:30 Guaifenesin (Robitussin Liquid Cup) 100 mg Q4H PRN PO COUGH Last administered on 09/20/16 16:18; Admin Dose 100 MG; Start 09/20/16 at 15:30 MANSOOR MARRERO Sep 20, 2016 17:43
[2016-09-20] MEDS: CYCLOBENZAPRINE 10 MG TAB PO SCH (20:51)
--- NOTE | 2016-09-20 22:08 | RADRPT ---
PROCEDURE: XR Chest. CLINICAL INDICATION: Chest pain TECHNIQUE: AP Portable chest. COMPARISON: 06/09/16 FINDINGS: The cardiomediastinal silhouette is normal. There is minimal hazy opacity at the left lung base Th e osseous structures are unremarkable. IMPRESSION: Minimal hazy left base opacity likely due to trace effusion and atelectasis. RPTAT: HIKT .Venu Galvez MD, MD Date Time Electronically viewed and signed by .Venu Galvez MD, on 09/20/2016 22:08 .T/
[2016-09-20] MEDS: DIPHENHYDRAMINE 50 MG CAP PO PRN (23:13)
[2016-09-21] VITALS (10 sets, daily range): BP systolic 113–146; BP diastolic 68–86; PULSE 80–94; RESP 19–20
[2016-09-21] MEDS: DEXAMETHASONE 4 MG/ML 1 ML INJ IV SCH ×4 (00:19→17:40)
[2016-09-21] MEDS: OXYCODONE/ACETAMINOPHEN (5/325) TAB PO PRN ×3 (03:23→19:59)
[2016-09-21 06:46] LABS: ADD SCAN DIFF NO
[2016-09-21 06:58] LABS: BASOPHILS % 0.1 % (0.0-2.0); HEMATOCRIT 34.1 % (37.0-47.0); HEMOGLOBIN 11.1 g/dl (12.0-16.0); LYMPHOCYTES # 1.3 10^3/ul (0.8-2.9); LYMPHOCYTES % 7.8 % (15.0-51.0); MEAN CORPUSCULAR HGB CONC 32.6 g/dl (32.0-37.0); MEAN PLATELET VOLUME 12.3 fl (7.4-10.4); MONOCYTE # 0.2 10^3/ul (0.3-0.9); MONOCYTES % 1.4 % (0.0-11.0); NEUTROPHIL # 14.4 10^3/ul (1.6-7.5); NEUTROPHILS % 89.9 % (39.0-77.0); NUCLEATED RED BLOOD CELLS% 0.2 /100WBC (0.0-0.0); PLATELET COUNT 373 10^3/UL (140-415); RED BLOOD COUNT 4.11 10^6/ul (4.20-5.40); RED CELL DISTRIBUTION WIDTH 13.1 % (11.5-14.5)
[2016-09-21 07:38] LABS: CALCIUM 9.9 mg/dl (8.4-10.2); CREATININE 0.54 mg/dl (0.44-1.00); POTASSIUM 4.4 mmol/L (3.5-5.1)
[2016-09-21] MEDS: HYDROmorphONE 1 MG/ML SYG IV PRN ×4 (08:16→23:00)
[2016-09-21] MEDS: ONDANSETRON 4 MG INJ IV PRN ×2 (08:16→17:40)
[2016-09-21] MEDS: DIPHENHYDRAMINE 50 MG CAP PO PRN (08:16)
--- NOTE | 2016-09-21 13:44 | PN ---
Date/Time of Note Date/Time of Note DATE: 09/21/16 TIME: 13:41 Assessment/Plan VTE Prophylaxis VTE Prophylaxis Intervention: SCD's Lines/Catheters IV Catheter Type (from Nrs): Peripheral IV Urinary Cath still in place: No Assessment/Plan Chief Complaint/Hosp Course Patient discouraged encouraged to take Percocet, continue IV Dilaudid for breakthrough pain. Patient remains hemodynamically stable. Assessment/Plan - Acute left-sided C5 to C6 disk herniation with evidence of cord compression, status post C5 to C6 partial vertebrectomy with interbody fusion and anterior plating. Continue to follow-up surgical recommendation. Continue Percocet and Dilaudid as needed for breakthrough pain. Advance diet to regular. Start physical therapy. - Morbid obesity. Further recommendations based on clinical course. Plan of care discussed with Dr. Hall. Problems: Exam/Review of Systems Vital Signs Vitals Vital Signs Date Time Temp Pulse Resp B/P Pulse Ox O2 Delivery O2 Flow Rate FiO2 09/21/16 12:16 80 09/21/16 08:00 Nasal Cannula 2.0 09/21/16 04:11 97.2 19 113/68 95 Intake and Output 09/20/16 09/20/16 09/21/16 15:00 23:00 07:00 Intake Total 380 ml Balance 380 ml Exam Constitutional: alert, oriented Head: normocephalic Neck: other (Surgical history incision was dry clean and intact dressing and cervical collar), supple Cardiovascular: nl pulses Gastrointestinal: non-tender Musculoskeletal: nl extremities to inspection Extremities: normal pulses Results Result Diagram: 09/21/16 0540 09/21/16 0540 Results 24 hrs Laboratory Tests Test 09/21/16 05:40 White Blood Count 16.0 #H Red Blood Count 4.11 L Hemoglobin 11.1 L Hematocrit 34.1 L Mean Corpuscular Volume 83.0 Mean Corpuscular Hemoglobin 27.0 L Mean Corpuscular Hemoglobin Concent 32.6 Red Cell Distribution Width 13.1 Platelet Count 373 Mean Platelet Volume 12.3 H Neutrophils % 89.9 H Lymphocytes % 7.8 L Monocytes % 1.4 Eosinophils % 0.0 Basophils % 0.1 Nucleated Red Blood Cells % 0.2 H Neutrophils # 14.4 H Lymphocytes # 1.3 Monocytes # 0.2 L Eosinophils # 0.0 Basophils # 0.0 Nucleated Red Blood Cells # 0.0 Sodium Level 159 #H Potassium Level 4.4 Chloride Level 104 Carbon Dioxide Level 22 Anion Gap 37 #H Blood Urea Nitrogen 11 Creatinine 0.54 Glucose Level 168 Calcium Level 9.9 Medications Medications Current Medications Naloxone HCl (Narcan) 0.2 mg PRN PRN IV DECREASED REPIRATORY RATE; Start at 16:00 Ondansetron HCl (Zofran Inj) 4 mg Q6H PRN IV NAUSEA AND/OR VOMITING Last administered on 09/21/16 08:16; Admin Dose 4 MG; Start 09/17/16 at 16:00 Diphenhydramine HCl (Benadryl) 25 mg Q6H PRN IV ITCHING Last administered on 17:31; Admin Dose 25 MG; Start 09/17/16 at 16:00 Miscellaneous Information 1. Discontinue SUPERINTENDENT COMMISSARY... SUPERINTENDENT COMMISSARY IV ; Start 09/17/16 at 16:00 Oxycodone/ Acetaminophen (Percocet (5/ 325)) 1 tab Q4H PRN PO PAIN Last administered on 09/20/16 16:19; Admin Dose 1 TAB; Start 09/17/16 at 17:30 Oxycodone/ Acetaminophen (Percocet (5/ 325)) 2 tab Q4H PRN PO PAIN Last administered on 09/21/16 03:23; Admin Dose 2 TAB; Start 09/17/16 at 17:30 Cyclobenzaprine HCl (Flexeril) 10 mg QHS PO Last administered on 09/20/16 20: 51; Admin Dose 10 MG; Start 09/17/16 at 21:00 Lorazepam (Ativan) 1 mg Q6H PRN IV ANXIETY Last administered on 09/20/16 08:03 ; Admin Dose 1 MG; Start 09/17/16 at 20:30 Clonidine (Catapres) 0.1 mg Q6H PRN PO ELEVATED BLOOD PRESSURE; Start 09/17/16 at 20:30 Metoprolol Tartrate (Lopressor) 5 mg Q4H PRN IV ELEVATED BLOOD PRESSURE; Start 09/17/16 at 23:00 Diphenhydramine HCl (Benadryl) 50 mg Q6H PRN PO ITCHING Last administered on 08:16; Admin Dose 50 MG; Start 09/18/16 at 11:30 Hydromorphone HCl (Dilaudid) 1 mg Q4H PRN IV SEVERE PAIN LEVEL 7-10 Last administered on 09/21/16 12:19; Admin Dose 1 MG; Start 09/18/16 at 20:00 Dexamethasone (Decadron) 4 mg Q6 IV Last administered on 09/21/16 12:18; Admin Dose 4 MG; Start 09/19/16 at 18:00 Sodium Chloride (Deep Sea) 1 spray BID PRN NASAL nasal dryness; Start 09/20/16 at 15:30 Guaifenesin (Robitussin Liquid Cup) 100 mg Q4H PRN PO COUGH Last administered on 09/20/16 16:18; Admin Dose 100 MG; Start 09/20/16 at 15:30 KUSH FONG Sep 21, 2016 13:44
[2016-09-21] MEDS: DIPHENHYDRAMINE 50 MG INJ IV PRN (17:40)
[2016-09-21] MEDS: CYCLOBENZAPRINE 10 MG TAB PO SCH (20:37)
--- NOTE | 2016-09-21 21:16 | CONS ---
Date/Time of Note Date/Time of Note DATE: 09/21/16 TIME: 21:14 Assessment/Plan Assessment/Plan Additional Assessment/Plan seen/examined awake/alert/follows/moves all, preexisting numbness in left hand co left shoulder pain no new neurological deficit has some redness to both upper extremities, may be drug allergy cervical decompression, acdf repeat mri looks good start ivf taper decadron lower dilaudid Consultation Date/Type/Reason Admit Date/Time Sep 17, 2016 at 10:43 Exam/Review of Systems Vital Signs Vitals Vital Signs Date Time Temp Pulse Resp B/P Pulse Ox O2 Delivery O2 Flow Rate FiO2 09/21/16 20:00 98.1 79 20 146/86 97 09/21/16 08:00 Nasal Cannula 2.0 Intake and Output 09/20/16 09/20/16 09/21/16 15:00 23:00 07:00 Intake Total 380 ml Balance 380 ml Results Result Diagram: 09/21/16 0540 09/21/16 0540 Results 24 hrs Laboratory Tests Test 09/21/16 05:40 09/21/16 17:45 White Blood Count 16.0 #H Red Blood Count 4.11 L Hemoglobin 11.1 L Hematocrit 34.1 L Mean Corpuscular Volume 83.0 Mean Corpuscular Hemoglobin 27.0 L Mean Corpuscular Hemoglobin Concent 32.6 Red Cell Distribution Width 13.1 Platelet Count 373 Mean Platelet Volume 12.3 H Neutrophils % 89.9 H Lymphocytes % 7.8 L Monocytes % 1.4 Eosinophils % 0.0 Basophils % 0.1 Nucleated Red Blood Cells % 0.2 H Neutrophils # 14.4 H Lymphocytes # 1.3 Monocytes # 0.2 L Eosinophils # 0.0 Basophils # 0.0 Nucleated Red Blood Cells # 0.0 Sodium Level 159 #H Potassium Level 4.4 Chloride Level 104 Carbon Dioxide Level 22 Anion Gap 37 #H Blood Urea Nitrogen 11 Creatinine 0.54 Glucose Level 168 Calcium Level 9.9 Troponin I < 0.012 Medications Medications Current Medications Naloxone HCl (Narcan) 0.2 mg PRN PRN IV DECREASED REPIRATORY RATE; Start at 16:00 Ondansetron HCl (Zofran Inj) 4 mg Q6H PRN IV NAUSEA AND/OR VOMITING Last administered on 09/21/16t 17:40; Admin Dose 4 MG; Start 09/17/16 at 16:00 Diphenhydramine HCl (Benadryl) 25 mg Q6H PRN IV ITCHING Last administered on 17:40; Admin Dose 25 MG; Start 09/17/16 at 16:00 Miscellaneous Information 1. Discontinue RHIT... RHIT IV ; Start 09/17/16 at 16:00 Oxycodone/ Acetaminophen (Percocet (5/ 325)) 1 tab Q4H PRN PO PAIN Last administered on 09/21/16 19:59; Admin Dose 1 TAB; Start 09/17/16 at 17:30 Oxycodone/ Acetaminophen (Percocet (5/ 325)) 2 tab Q4H PRN PO PAIN Last administered on 09/21/16 15:31; Admin Dose 2 TAB; Start 09/17/16 at 17:30 Cyclobenzaprine HCl (Flexeril) 10 mg QHS PO Last administered on 09/21/16 20: 37; Admin Dose 10 MG; Start 09/17/16 at 21:00 Lorazepam (Ativan) 1 mg Q6H PRN IV ANXIETY Last administered on 09/20/16 08:03 ; Admin Dose 1 MG; Start 09/17/16 at 20:30 Clonidine (Catapres) 0.1 mg Q6H PRN PO ELEVATED BLOOD PRESSURE; Start 09/17/16 at 20:30 Metoprolol Tartrate (Lopressor) 5 mg Q4H PRN IV ELEVATED BLOOD PRESSURE; Start 09/17/16 at 23:00 Diphenhydramine HCl (Benadryl) 50 mg Q6H PRN PO ITCHING Last administered on 08:16; Admin Dose 50 MG; Start 09/18/16 at 11:30 Hydromorphone HCl (Dilaudid) 1 mg Q4H PRN IV SEVERE PAIN LEVEL 7-10 Last administered on 09/21/16 17:40; Admin Dose 1 MG; Start 09/18/16 at 20:00 Sodium Chloride (Deep Sea) 1 spray BID PRN NASAL nasal dryness; Start 09/20/16 at 15:30 Guaifenesin (Robitussin Liquid Cup) 100 mg Q4H PRN PO COUGH Last administered on 09/20/16 16:18; Admin Dose 100 MG; Start 09/20/16 at 15:30 Dexamethasone 4 mg 4 mg Q12 PO ; Start 09/21/16 at 21:00 Sodium Chloride (1/2 NS) 1,000 ml @ 75 mls/hr [id number] IV ; Start 09/21/16 at 21 :30 GIANCARLO DIAZ PA-C Sep 21, 2016 21:16
--- NOTE | 2016-09-21 21:58 | RADRPT ---
PROCEDURE: Left upper extremity venous ultrasound CLINICAL INDICATION: Left arm pain and swelling. Deep venous thrombosis. TECHNIQUE: Casanova scale, color doppler, spectral doppler ultrasound imaging of the venous system of the left upper extremity. Augmentation maneuvers were utilized. COMPARISON: No prior studies are available for comparison. FINDINGS: LEFT: Internal jugular vein: Not imaged Subclavian vein: Patent. Axillary vein: Patent. Brachial vein: Patent. Basilic vein: Patent. Cephalic vein: Patent. Radial vein: Patent. Ulnar vein: Patent. IMPRESSION: No evidence of a deep vein thrombosis involving the left upper extremity. RPTAT: AADD .Thomas Grubbs MD, MD Date Time Electronically viewed and signed by .Thomas Grubbs MD, MD on 09/21/2016 21:58 .B/
[2016-09-21] MEDS: DEXAMETHASONE 4 MG TAB PO SCH (22:58)
[2016-09-21] MEDS: SOD CHLORIDE 0.45% 1,000 ML IV SCH (22:59)
[2016-09-21] MEDS: LORAZEPAM 2 MG INJ IV PRN (23:53)
[2016-09-22] VITALS (10 sets, daily range): BP systolic 126–142; BP diastolic 69–100; PULSE 60–75; RESP 18–20
[2016-09-22 08:15] LABS: ADD SCAN DIFF NO
[2016-09-22 08:20] LABS: BASOPHILS % 0.1 % (0.0-2.0); HEMATOCRIT 34.7 % (37.0-47.0); HEMOGLOBIN 11.2 g/dl (12.0-16.0); LYMPHOCYTES # 1.5 10^3/ul (0.8-2.9); LYMPHOCYTES % 10.5 % (15.0-51.0); MEAN CORPUSCULAR HEMOGLOBIN 27.1 pg (29.0-33.0); MEAN CORPUSCULAR HGB CONC 32.3 g/dl (32.0-37.0); MEAN CORPUSCULAR VOLUME 83.8 fl (82.0-101.0); MEAN PLATELET VOLUME 11.6 fl (7.4-10.4); MONOCYTE # 0.4 10^3/ul (0.3-0.9); MONOCYTES % 2.7 % (0.0-11.0); NEUTROPHIL # 12.5 10^3/ul (1.6-7.5); NEUTROPHILS % 85.6 % (39.0-77.0); PLATELET COUNT 434 10^3/UL (140-415); RED BLOOD COUNT 4.14 10^6/ul (4.20-5.40); RED CELL DISTRIBUTION WIDTH 13.2 % (11.5-14.5); WHITE BLOOD COUNT 14.6 10^3/ul (4.8-10.8)
[2016-09-22] MEDS: DIPHENHYDRAMINE 50 MG INJ IV PRN ×2 (09:11→18:50)
[2016-09-22] MEDS: ONDANSETRON 4 MG INJ IV PRN ×2 (09:11→18:50)
[2016-09-22] MEDS: DEXAMETHASONE 4 MG TAB PO SCH ×2 (09:11→21:32)
[2016-09-22] MEDS: HYDROmorphONE 1 MG/ML SYG IV PRN ×3 (09:12→18:50)
[2016-09-22 10:53] LABS: CALCIUM 10.1 mg/dl (8.4-10.2); CREATININE 0.6 mg/dl (0.44-1.00); POTASSIUM 4.1 mmol/L (3.5-5.1)
[2016-09-22] MEDS: SOD CHLORIDE 0.45% 1,000 ML IV SCH (11:01)
[2016-09-22] MEDS: OXYCODONE/ACETAMINOPHEN (5/325) TAB PO PRN ×3 (11:01→22:54)
[2016-09-22] MEDS: SENNA TAB PO PRN (16:57)
--- NOTE | 2016-09-22 17:36 | PN ---
Date/Time of Note Date/Time of Note DATE: 09/22/16 TIME: 17:33 Assessment/Plan VTE Prophylaxis VTE Prophylaxis Intervention: SCD's Lines/Catheters IV Catheter Type (from Nrs): Peripheral IV Urinary Cath still in place: No Assessment/Plan Chief Complaint/Hosp Course Patient's complains of significant chest and neck shoulder pain, requiring IV Dilaudid, able to work with physical therapy. Assessment/Plan - Acute left-sided C5 to C6 disk herniation with evidence of cord compression, status post C5 to C6 partial vertebrectomy with interbody fusion and anterior plating. Continue to follow-up surgical recommendation. Continue Percocet and Dilaudid as needed for breakthrough pain. Continue physical therapy. - Chest pain, troponin is negative 3. - Morbid obesity. Further recommendations based on clinical course. Plan of care discussed with Dr. Hall. Problems: Exam/Review of Systems Vital Signs Vitals Vital Signs Date Time Temp Pulse Resp B/P Pulse Ox O2 Delivery O2 Flow Rate FiO2 09/22/16 17:31 75 09/22/16 15:06 97.9 18 139/100 97 09/22/16 07:30 Nasal Cannula 2.0 Intake and Output 09/21/16 09/21/16 09/22/16 15:00 23:00 07:00 Intake Total 1050 ml Balance 1050 ml Exam Constitutional: alert, oriented Head: normocephalic Neck: other (Surgical incision intact) Cardiovascular: nl pulses Gastrointestinal: non-tender Musculoskeletal: nl extremities to inspection Extremities: normal pulses Results Result Diagram: 09/22/16 0620 09/22/16 0620 Results 24 hrs Laboratory Tests Test 09/21/16 17:45 09/21/16 22:02 09/22/16 06:20 09/22/16 10:09 Troponin I < 0.012 < 0.012 < 0.012 Magnesium Level 1.9 White Blood Count 14.6 H Red Blood Count 4.14 L Hemoglobin 11.2 L Hematocrit 34.7 L Mean Corpuscular Volume 83.8 Mean Corpuscular Hemoglobin 27.1 L Mean Corpuscular Hemoglobin Concent 32.3 Red Cell Distribution Width 13.2 Platelet Count 434 H Mean Platelet Volume 11.6 H Neutrophils % 85.6 H Lymphocytes % 10.5 L Monocytes % 2.7 Eosinophils % 0.0 Basophils % 0.1 Nucleated Red Blood Cells % 0.0 Neutrophils # 12.5 H Lymphocytes # 1.5 Monocytes # 0.4 Eosinophils # 0.0 Basophils # 0.0 Nucleated Red Blood Cells # 0.0 Sodium Level 140 # Potassium Level 4.1 Chloride Level 103 Carbon Dioxide Level 22 Anion Gap 19 #H Blood Urea Nitrogen 15 Creatinine 0.60 Glucose Level 163 Calcium Level 10.1 Medications Medications Current Medications Naloxone HCl (Narcan) 0.2 mg PRN PRN IV DECREASED REPIRATORY RATE; Start at 16:00 Ondansetron HCl (Zofran Inj) 4 mg Q6H PRN IV NAUSEA AND/OR VOMITING Last administered on 09/22/16 09:11; Admin Dose 4 MG; Start 09/17/16 at 16:00 Diphenhydramine HCl (Benadryl) 25 mg Q6H PRN IV ITCHING Last administered on 09:11; Admin Dose 25 MG; Start 09/17/16 at 16:00 Miscellaneous Information 1. Discontinue INDUSTRIAL RELATIONS COUNSELOR... INDUSTRIAL RELATIONS COUNSELOR IV ; Start 09/17/16 at 16:00 Oxycodone/ Acetaminophen (Percocet (5/ 325)) 1 tab Q4H PRN PO PAIN Last administered on 09/21/16 19:59; Admin Dose 1 TAB; Start 09/17/16 at 17:30 Oxycodone/ Acetaminophen (Percocet (5/ 325)) 2 tab Q4H PRN PO PAIN Last administered on 09/22/16 16:57; Admin Dose 2 TAB; Start 09/17/16 at 17:30 Cyclobenzaprine HCl (Flexeril) 10 mg QHS PO Last administered on 09/21/16 20: 37; Admin Dose 10 MG; Start 09/17/16 at 21:00 Lorazepam (Ativan) 1 mg Q6H PRN IV ANXIETY Last administered on 09/21/16 23:53 ; Admin Dose 1 MG; Start 09/17/16 at 20:30 Clonidine (Catapres) 0.1 mg Q6H PRN PO ELEVATED BLOOD PRESSURE; Start 09/17/16 at 20:30 Metoprolol Tartrate (Lopressor) 5 mg Q4H PRN IV ELEVATED BLOOD PRESSURE; Start 09/17/16 at 23:00 Diphenhydramine HCl (Benadryl) 50 mg Q6H PRN PO ITCHING Last administered on 08:16; Admin Dose 50 MG; Start 09/18/16 at 11:30 Sodium Chloride (Deep Sea) 1 spray BID PRN NASAL nasal dryness; Start 09/20/16 at 15:30 Guaifenesin (Robitussin Liquid Cup) 100 mg Q4H PRN PO COUGH Last administered on 09/20/16 16:18; Admin Dose 100 MG; Start 09/20/16 at 15:30 Dexamethasone 4 mg 4 mg Q12 PO Last administered on 09/22/16 09:11; Admin Dose 4 MG; Start 09/21/16 at 21:00 Sodium Chloride (1/2 NS) 1,000 ml @ 75 mls/hr [id number] IV Last administered on 09/22/16 11:01; Admin Dose 75 MLS/HR; Start 09/21/16 at 21:30 Hydromorphone HCl (Dilaudid) 0.5 mg Q3H PRN IV SEVERE PAIN LEVEL 7-10 Last administered on 09/22/16 14:27; Admin Dose 0.5 MG; Start 09/21/16 at 23:00 Senna (Senokot) 1 tab BID PRN PO CONSTIPATION Last administered on 09/22/16 16 :57; Admin Dose 1 TAB; Start 09/22/16 at 16:00 KUSH FONG Sep 22, 2016 17:36
[2016-09-22] MEDS: CYCLOBENZAPRINE 10 MG TAB PO SCH (21:32)
[2016-09-23] VITALS (10 sets, daily range): BP systolic 122–140; BP diastolic 70–90; PULSE 70–84; RESP 17–20
[2016-09-23] MEDS: SOD CHLORIDE 0.45% 1,000 ML IV SCH ×3 (00:10→14:11)
[2016-09-23] MEDS: HYDROmorphONE 1 MG/ML SYG IV PRN ×5 (00:18→15:26)
[2016-09-23] MEDS: OXYCODONE/ACETAMINOPHEN (5/325) TAB PO PRN ×3 (02:52→13:15)
[2016-09-23 07:41] LABS: ADD SCAN DIFF NO
[2016-09-23 07:53] LABS: BASOPHILS % 0.1 % (0.0-2.0); LYMPHOCYTES # 2.1 10^3/ul (0.8-2.9); LYMPHOCYTES % 13.3 % (15.0-51.0); MEAN CORPUSCULAR HEMOGLOBIN 27.3 pg (29.0-33.0); MEAN CORPUSCULAR HGB CONC 32.4 g/dl (32.0-37.0); MEAN CORPUSCULAR VOLUME 84.3 fl (82.0-101.0); MEAN PLATELET VOLUME 11.7 fl (7.4-10.4); MONOCYTE # 0.6 10^3/ul (0.3-0.9); MONOCYTES % 3.8 % (0.0-11.0); NEUTROPHIL # 12.7 10^3/ul (1.6-7.5); NEUTROPHILS % 81.2 % (39.0-77.0); PLATELET COUNT 414 10^3/UL (140-415); RED BLOOD COUNT 4.39 10^6/ul (4.20-5.40); WHITE BLOOD COUNT 15.6 10^3/ul (4.8-10.8)
[2016-09-23 08:15] LABS: CALCIUM 9.5 mg/dl (8.4-10.2); CREATININE 0.63 mg/dl (0.44-1.00); POTASSIUM 3.7 mmol/L (3.5-5.1)
[2016-09-23] MEDS ORDERED: DEXAMETHASONE 4 MG TAB PO SCH (09:00)
[2016-09-23] MEDS: DIPHENHYDRAMINE 50 MG INJ IV PRN (09:11)
[2016-09-23] MEDS: SENNA TAB PO PRN (09:18)
--- NOTE | 2016-09-23 09:38 | CONS ---
Date/Time of Note Date/Time of Note DATE: 09/23/16 TIME: 09:36 Assessment/Plan Assessment/Plan Additional Assessment/Plan seen/examined awake/alert/follows/moves all pt feeling better today acdf pt may go home Consultation Date/Type/Reason Admit Date/Time Sep 17, 2016 at 10:43 Exam/Review of Systems Vital Signs Vitals Vital Signs Date Time Temp Pulse Resp B/P Pulse Ox O2 Delivery O2 Flow Rate FiO2 09/23/16 08:44 75 09/23/16 07:38 97.8 18 130/84 100 09/22/16 20:00 Nasal Cannula 2.0 Intake and Output 09/22/16 09/22/16 09/23/16 15:00 23:00 07:00 Intake Total 400 ml 1050 ml 1475 ml Balance 400 ml 1050 ml 1475 ml Results Result Diagram: 09/23/16 0624 09/23/16 0624 Results 24 hrs Laboratory Tests Test 09/22/16 10:09 09/23/16 06:24 Troponin I < 0.012 White Blood Count 15.6 H Red Blood Count 4.39 Hemoglobin 12.0 Hematocrit 37.0 Mean Corpuscular Volume 84.3 Mean Corpuscular Hemoglobin 27.3 L Mean Corpuscular Hemoglobin Concent 32.4 Red Cell Distribution Width 13.0 Platelet Count 414 Mean Platelet Volume 11.7 H Neutrophils % 81.2 H Lymphocytes % 13.3 L Monocytes % 3.8 Eosinophils % 0.0 Basophils % 0.1 Nucleated Red Blood Cells % 0.0 Neutrophils # 12.7 H Lymphocytes # 2.1 Monocytes # 0.6 Eosinophils # 0.0 Basophils # 0.0 Nucleated Red Blood Cells # 0.0 Sodium Level 137 Potassium Level 3.7 Chloride Level 99 Carbon Dioxide Level 27 Anion Gap 15 Blood Urea Nitrogen 16 Creatinine 0.63 Glucose Level 177 Calcium Level 9.5 Medications Medications Current Medications Naloxone HCl (Narcan) 0.2 mg PRN PRN IV DECREASED REPIRATORY RATE; Start at 16:00 Ondansetron HCl (Zofran Inj) 4 mg Q6H PRN IV NAUSEA AND/OR VOMITING Last administered on 09/22/16t 18:50; Admin Dose 4 MG; Start 09/17/16 at 16:00 Diphenhydramine HCl (Benadryl) 25 mg Q6H PRN IV ITCHING Last administered on 09:11; Admin Dose 25 MG; Start 09/17/16 at 16:00 Miscellaneous Information 1. Discontinue EDITOR SOUND... EDITOR SOUND IV ; Start 09/17/16 at 16:00 Oxycodone/ Acetaminophen (Percocet (5/ 325)) 1 tab Q4H PRN PO PAIN Last administered on 09/21/16 19:59; Admin Dose 1 TAB; Start 09/17/16 at 17:30 Oxycodone/ Acetaminophen (Percocet (5/ 325)) 2 tab Q4H PRN PO PAIN Last administered on 09/23/16 09:12; Admin Dose 2 TAB; Start 09/17/16 at 17:30 Cyclobenzaprine HCl (Flexeril) 10 mg QHS PO Last administered on 09/22/16 21: 32; Admin Dose 10 MG; Start 09/17/16 at 21:00 Lorazepam (Ativan) 1 mg Q6H PRN IV ANXIETY Last administered on 09/21/16 23:53 ; Admin Dose 1 MG; Start 09/17/16 at 20:30 Clonidine (Catapres) 0.1 mg Q6H PRN PO ELEVATED BLOOD PRESSURE; Start 09/17/16 at 20:30 Metoprolol Tartrate (Lopressor) 5 mg Q4H PRN IV ELEVATED BLOOD PRESSURE; Start 09/17/16 at 23:00 Diphenhydramine HCl (Benadryl) 50 mg Q6H PRN PO ITCHING Last administered on 08:16; Admin Dose 50 MG; Start 09/18/16 at 11:30 Sodium Chloride ([place] Sea) 1 spray BID PRN NASAL nasal dryness; Start 09/20/16 at 15:30 Guaifenesin 100 mg 100 mg Q4H PRN PO COUGH Last administered on 09/20/16 16:18 ; Admin Dose 100 MG; Start 09/20/16 at 15:30 Sodium Chloride (1/2 NS) 1,000 ml @ 75 mls/hr [id number] IV Last administered on 09/23/16 03:20; Admin Dose 75 MLS/HR; Start 09/21/16 at 21:30 Hydromorphone HCl (Dilaudid) 0.5 mg Q3H PRN IV SEVERE PAIN LEVEL 7-10 Last administered on 09/23/16 06:38; Admin Dose 0.5 MG; Start 09/21/16 at 23:00 Senna (Senokot) 1 tab BID PRN PO CONSTIPATION Last administered on 09/23/16 09 :18; Admin Dose 1 TAB; Start 09/22/16 at 16:00 Dexamethasone (Decadron) 4 mg DAILY PO Last administered on 09/23/16 09:12; Admin Dose 4 MG; Start 09/23/16 at 09:00; Stop 09/25/16 at 09:00 GIANCARLO DIAZ PA-C Sep 23, 2016 09:38
[2016-09-23] MEDS: ONDANSETRON 4 MG INJ IV PRN (14:29)
[2016-09-23] MEDS: DIPHENHYDRAMINE 50 MG CAP PO PRN (15:25)
[2016-09-23] MEDS ORDERED: Oxycodone/Acetamin (5/325) PO (16:40)
--- NOTE | 2016-09-25 10:10 | RADRPT ---
Vent Rate: 84 bpm RR Interval: 0 msec MA Interval: 158 msec QRS Duration: 94 msec QT Interval: 370 msec QTC Interval: 437 msec P-R-T [place]: 44 - 54 - 30 degrees Normal sinus rhythm Normal ECG Electronically Signed By: Padilla Workman [id number]
--- NOTE | 2016-10-02 21:33 | DS ---
Date/Time of Note Date/Time of Note DATE: 10/02/16 TIME: 21:31 Discharge Summary Admission/Discharge Info Admit Date/Time Sep 17, 2016 at 10:43 Discharge Date/Time Sep 23, 2016 at 17:26 Discharge Diagnosis Acute left-sided C5 to C6 disk herniation with evidence of cord compression, status post C5 to C6 partial vertebrectomy with interbody fusion and anterior plating. 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 The patient recently was seen by Dr. oYo as an outpatient. MRI of the C-spine dated 08/15/2016 shows acute left- sided C5 to C6 disk herniation with evidence of cord compression. The patient was brought into the hospital today and underwent C5 to C6 partial vertebrectomy and interbody fusion and anterior plating. 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 The patient did not have any chest pain or shortness of breath. No reported leg pain. The patient is able to move all extremities. No reported recent fever or chills. No reported recent dizziness or syncope. No reported recent urinary or bowel complaint. Hospital Course - Acute left-sided C5 to C6 disk herniation with evidence of cord compression, status post C5 to C6 partial vertebrectomy with interbody fusion and anterior plating. Continue to follow-up surgical recommendation. Continue Percocet and Dilaudid as needed for breakthrough pain. Continue physical therapy. - Chest pain, troponin is negative 3. - Morbid obesity. Home Meds Active Scripts [Oxycodone/Acetamin (5/325)] 1 TAB TAB No Conflict Check, 1 TAB PO Q4H Y for PAIN, #45 Prov:KUSH FONG 09/23/16 Reported Medications Cyclobenzaprine Hcl* (Cyclobenzaprine Hcl*) 10 Mg Tablet, 10 MG PO QHS, #30 TAB 06/09/16 Follow-up Plan f/up with Dr Yoo in 2 weeks. Primary Care Provider MD AJIT Yarbrough SVETLANA Oct 02, 2016 21:33
== END 2016-09-23 17:26 | disposition home or self-care (01) | DRG 472 ==
LOC: REC 10:43 → MS1 16:45 → TEL 23:15
PROVIDERS: ADMIT Neurological Surgery; ATTEND Internal Medicine
PROC: 0RT30ZZ Resection of Cervical Vertebral Disc, Open Approach (ICD-10-PCS; 2016-09-17)
PROC: 0RG10A0 Fusion of Cervical Vertebral Joint with Interbody Fusion Device, Anterior Approach, Anterior Column, Open Approach (ICD-10-PCS; principal; 2016-09-17 14:30)
DX: M50.022 Cervical disc disorder at C5-C6 level with myelopathy (principal); Z68.41 Body mass index [BMI] 40.0-44.9, adult; M47.12 Other spondylosis with myelopathy, cervical region; E66.01 Morbid (severe) obesity due to excess calories; G89.18 Other acute postprocedural pain; R07.9 Chest pain, unspecified; M48.02 Spinal stenosis, cervical region; Z86.711 Personal history of pulmonary embolism
CPT/HCPCS: 71010; 72040; 72141; 80048; 83735; 84484; 84703; 85025; 88304; 93005; 93971; 97162; C1713; J0690; J1100; J1170; J1200; J2060; J2175; J2405; J2765; J3010; J7121; J7999

== ENCOUNTER → 2016-12-24 | Outpatient (CLI) | payer OTHER ==
[~2016-12-24] MED LIST changes: -FURO-110 PO; -OXYC-209 PO; +Oxycodone/Acetamin (5/325) PO
[2016-12-24 14:03] LABS: AADO2 Arterial 7.5 mmHg (7.0-24.0); Allen Test ACCEPTAB; Arterial Base Excess -0.1 mmol/L (-3.0-3); Arterial COHb 0.3 % (0.0-3.0); Arterial HCO3 23.6 mmol/L (22.0-26.0); Arterial MetHb 0.4 % (0.0-1.5); MODE ROOM AIR
== END | disposition home or self-care (01) ==
LOC: PUL 13:34
PROVIDERS: ATTEND Internal Medicine Pulmonary Disease
DX: E66.9 Obesity, unspecified (principal)
CPT/HCPCS: 36600; 82803

== ENCOUNTER 2017-08-12 14:59 | Outpatient (CLI) | END 2017-08-13 14:12 | disposition home or self-care (01) ==

== ENCOUNTER 2017-08-27 13:26 | Outpatient (CLI) | END 2017-08-27 15:05 | disposition home or self-care (01) ==

== ENCOUNTER 2018-06-17 06:07 | Day surgery (SDC) | payer OTHER ==
[~2018-06-17] VITALS: Ht 157.5 cm; Wt 77.3 kg
[~2018-06-17 06:07] MED LIST changes: -CYCL-319 PO; +OMEP40CA6 PO; +ONDA4TAB13 PO; -Oxycodone/Acetamin (5/325) PO
[2018-06-17 07:09] VITALS: Ht 157.5 cm; Wt 77.3 kg
--- NOTE | 2018-06-17 07:33 | PREAC ---
Date/Time of Note Date/Time of Note DATE: 06/17/18 TIME: 07:31 Anesthesia Eval and Record Evaluation Time Pre-Procedure Interview DATE: 06/17/18 TIME: 07:31 Age 33 Sex female NPO: 8 hrs Preoperative diagnosis vomiting, diarrhea Planned procedure EGD, colonoscopy Past Medical History Past Medical History: Includes Cardio: Other (history of pulmonary embolism) GI: GERD, Obesity (history of gastric sleeve) Surgery & Anesthesia Issues No known issue Meds Anticoagulation: No Beta Sweta within 24 hr: No Reason Beta Sweta not given: Pt. not on B-Sweta Reported Medications Omeprazole* (Omeprazole*) 40 Mg Capsule.dr, 40 MG PO DAILY, #30 CAP 08/12/17 Discontinued Reported Medications Ondansetron Hcl* (Zofran*) 4 Mg Tab, 4 MG PO Q6H PRN for NAUSEA AND OR VOMITING, TAB 08/12/17 Meds reviewed: Yes Allergies Coded Allergies: No Known Allergy (Unverified , 09/17/16) Allergies Reviewed: Yes Labs/Studies Labs Reviewed: Reviewed by anesthesiologist test: Negative Pre-procedure Exam Airway: Adequate mouth opening, Adequate thyromental dist Mallampati: Mallampati II Teeth: Normal Lung: Normal Heart: Normal ASA Physical Status ASA physical status: 2 Emergency: None Planned Anesthetic General/MAC: Mask Planned Pain Management Parenteral pain med Pre-operative Attestations Prior to commencing anesthesia and surgery, the patient was re-evaluated, there was verification of: *The patient's identity *The results of appropriate recent lab work and preoperative vital signs *The above evaluation not changing prior to induction *Anesthetic plan, risk benefits, alternative and complications discussed with patient/family; questions answered; patient/family understands, accepts and wishes to proceed. OPAL PETERSON MD Jun 17, 2018 07:33
[2018-06-17] MEDS ORDERED: LIDOCAINE 2% (SDV) 5 ML INJ ONE (07:37)
[2018-06-17] MEDS ORDERED: MIDAZOLAM 1 MG/ML 2 ML INJ ONE (07:37)
[2018-06-17] MEDS ORDERED: PROPOFOL 20 ML ONE ×3 (07:37→08:57)
[2018-06-17] MEDS ORDERED: HYDROmorphONE 1 MG/5 ML IV SYRINGE IV PRN (08:00)
[2018-06-17] MEDS ORDERED: ONDANSETRON 4 MG INJ IV PRN (08:00)
[2018-06-17 08:10] VITALS: BP 134/83; PULSE 73; RESP 18
--- NOTE | 2018-06-17 08:54 | PAC ---
Date/Time of Note Date/Time of Note DATE: 06/17/18 TIME: 08:53 Post-Anesthesia Notes Post-Anesthesia Note Activity: WNL Respiratory function: WNL Cardiovascular function: WNL Mental status: Baseline Pain reasonably controlled: Yes Hydration appropriate: Yes Nausea/Vomiting absent: Yes Comments BP: 117/74 HR: 65 RR: 15 T: 98 SaO2: 100% OPAL PETERSON MD Jun 17, 2018 08:54
[2018-06-17 09:09] VITALS: BP 110/67; PULSE 81; RESP 16
== END 2018-06-17 11:52 | disposition home or self-care (01) ==
LOC: GIL 06:07
PROVIDERS: ATTEND Internal Medicine Gastroenterology
DX: R19.7 Diarrhea, unspecified (principal); K64.1 Second degree hemorrhoids; K20.8 Other esophagitis; K29.30 Chronic superficial gastritis without bleeding
CPT/HCPCS: 43239; 45380; 84703; 88305; 88312; J2250; Z7610

== ENCOUNTER 2018-08-01 15:58 | Emergency (ER) | payer OTHER ==
[~2018-08-01] VITALS: Ht 165.1 cm; Wt 77.3 kg
[~2018-08-01 15:58] MED LIST changes: -ONDA4TAB13 PO
[2018-08-01 16:02] VITALS: BP 125/75; PULSE 84; RESP 18; Ht 165.1 cm; Wt 77.3 kg
--- NOTE | 2018-08-01 17:12 | ERD ---
ER Documentation Chief Complaint Chief Complaint epigastric pain w/diarrhea x1hr, black stool, bariatric surgery 1yr ago HPI 33-year-old female presents with history of epigastric pain starting 1 PM today. Addition states is been having black diarrhea since this morning. States that she had bright red blood in her stool a week ago but now it is turned black. She had a bariatric surgery one year ago. In addition she is a history of pulmonary embolism in 2015. She also has a history of gastritis confirmed on endoscopy. States that this pain does not feel like any other pain she has had before. She thought it was initially gas pain so she took Gas-X but has not resolved the pain. Currently taking omeprazole and no other medications. Denies dysuria, hematuria, fevers, chills, vomiting. ROS All systems reviewed and are negative except as per history of present illness. Medications Home Meds Active Scripts Hydrocodone/Acetaminophen ([place] 5-325 Tablet) 1 Each Tablet, 1 TAB PO Q6H PRN for PAIN, #15 TAB Prov:KETTY RANDLE 08/01/18 Reported Medications Omeprazole* (Omeprazole*) 40 Mg Capsule.dr, 40 MG PO DAILY, #30 CAP 08/12/17 Allergies Allergies: Coded Allergies: No Known Allergy (Unverified , 09/17/16) PMhx/Soc History of Surgery: Yes (GASTRIC SLEEVE, HERNIATED CERVIACAL DISC SX) Anesthesia Reaction: No Hx Neurological Disorder: No Hx Respiratory Disorders: Yes (SLEEP APNEA, PE) Hx Cardiac Disorders: No Hx Psychiatric Problems: No Hx Miscellaneous Medical Probl: No Hx Alcohol Use: No Hx Substance Use: No Hx Tobacco Use: No FmHx Family History: No diabetes, No coronary disease, No other Physical Exam Vitals Vital Signs Date Temp Pulse Resp B/P (MAP) Pulse Ox O2 O2 Flow FiO2 Time Delivery Rate 08/01/18 99.4 84 18 125/75 99 16:02 (92) Physical Exam Const: No acute distress Head: Atraumatic Eyes: Normal Conjunctiva ENT: Normal External Ears, Nose and Mouth. Neck: Full range of motion. No meningismus. Resp: Clear to auscultation bilaterally Cardio: Regular rate and rhythm, no murmurs Abd: Tender to palpation epigastric area. No pulsations noted. Right lower quadrant tenderness. Jumping up and down elicits pain. Skin: No petechiae or rashes Back: No midline or flank tenderness Ext: No cyanosis, or edema Neur: Awake and alert Psych: Normal Mood and Affect Result Diagram: 08/01/18 1744 08/01/18 1743 Results 24 hrs Laboratory Tests Test 08/01/18 17:20 08/01/18 17:21 08/01/18 17:43 08/01/18 17:44 Urine Color YELLOW Urine Clarity SLIGHTLY CLOUDY Urine pH 6.0 Urine Specific 1.025 [place] Urine Ketones NEGATIVE mg/dL Urine Nitrite NEGATIVE mg/dL Urine Bilirubin NEGATIVE mg/dL Urine NEGATIVE mg/dL Urobilinogen Urine Leukocyte NEGATIVE Janine/ul Esterase Urine 1 /HPF Microscopic RBC Urine 1 /HPF Microscopic WBC Urine Squamous FEW /HPF Epithelial Cells Urine Hemoglobin NEGATIVE mg/dL Urine Glucose NEGATIVE mg/dL Urine Total NEGATIVE mg/dl Protein POC Beta HCG, NEGATIVE Qualitative Sodium Level 143 mmol/L Potassium Level 4.1 mmol/L Chloride Level 107 mmol/L Carbon Dioxide 22 mmol/L Level Anion Gap 14 Blood Urea 19 mg/dl Nitrogen Creatinine 0.67 mg/dl Est Glomerular > 60 mL/min Filtrat Rate mL/min Glucose Level 106 mg/dl Calcium Level 10.1 mg/dl Total Bilirubin 0.4 mg/dl Direct Bilirubin 0.00 mg/dl Indirect 0.4 mg/dl Bilirubin Aspartate Amino 29 IU/L Transf (AST/SGOT ) Alanine 22 IU/L Aminotransferase (ALT/SGPT) Alkaline 107 IU/L Phosphatase Troponin I < 0.012 ng/ml Total Protein 8.9 g/dl Albumin 4.7 g/dl Globulin 4.20 g/dl Albumin/Globulin 1.11 Ratio Lipase 297 U/L White Blood 9.9 10^3/ul Count Red Blood Count 4.32 10^6/ul Hemoglobin 12.6 g/dl Hematocrit 39.2 % Mean Corpuscular 90.7 fl Volume Mean Corpuscular 29.2 pg Hemoglobin Mean Corpuscular 32.1 g/dl Hemoglobin Ariana nt Red Cell 12.8 % Distribution Width Platelet Count 239 10^3/UL Mean Platelet 12.2 fl Volume Immature 0.300 % Granulocytes % Neutrophils % 71.9 % Lymphocytes % 23.1 % Monocytes % 3.6 % Eosinophils % 0.4 % Basophils % 0.7 % Nucleated Red 0.0 /100WBC Blood Cells % Immature 0.030 10^3/ul Granulocytes # Neutrophils # 7.1 10^3/ul Lymphocytes # 2.3 10^3/ul Monocytes # 0.4 10^3/ul Eosinophils # 0.0 10^3/ul Basophils # 0.1 10^3/ul Nucleated Red 0.0 10^3/ul Blood Cells # Current Medications Medications Dose Sig/Merline Start Time Status Last (Trade) Ordered Route PRN Stop Time Admin Dose Reason Admin 1 tab ONCE ONCE 08/01/18 DC 08/01/18 Acetaminophen PO 17:30 17:49 / 08/01/18 17:31 Hydrocodone Bitart ([place] (5/325)) IV Flush 10 ml STK-MED 08/01/18 DC (NS 10 ml) ONCE .ROUTE 18:59 08/01/18 19:00 Sodium 100 ml @ ud STK-MED 08/01/18 DC Chloride ONCE .ROUTE 18:59 08/01/18 19:00 Iohexol 150 ml STK-MED 08/01/18 DC (Omnipaque ONCE .ROUTE 18:59 300mg/ ml) 08/01/18 19:00 Procedures/MDM DIAGNOSTIC IMAGING REPORT Patient: DIEGO COE : 1985 Age: 33 Sex: F MR #: [id number] DOS: 08/01/18 1702 Ordering MD: KETTY RANDLE Location: [facility] Room/Bed: PROCEDURE: US Abdomen. CLINICAL INDICATION: abdominal pain TECHNIQUE: Multiple real-time images were acquired of the patient's right upper quadrant abdomen and retroperitoneum utilizing a high resolution transducer. COMPARISON: None FINDINGS: The liver demonstrates slightly increased echogenicity. The liver is slightly enlarged in size and no focal solid lesions are seen. The liver measures 17.6 cm in length. The portal vein is patent with normal direction of flow. No intrahepatic biliary dilatation is seen. No gallstones are identified within the gallbladder. There is no pericholecystic fluid or gallbladder wall thickening. The common bile duct measures 3.6 mm in maximal dimension. The visualized portions of the pancreas are unremarkable. The tail of the pancreas is not seen. No free fluid is identified. The right kidney is normal in size, and demonstrate normal echogenicity and cortical thickness. The right kidney measures 11.1 cm in long dimension. There is no evidence of hydronephrosis. There are no kidney stones. The proximal aorta measures 1.7 cm. RPTAT: AA IMPRESSION: Mild hepatomegaly with mild fatty liver. No evidence of gallstones. .Ryan Padilla MD, MD Date Time Electronically viewed and signed by .Ryan Padilla MD, MD on 08/01/2018 17:30 .S/ CC: KETTY RANDLE [id number] DIAGNOSTIC IMAGING REPORT Patient: DIEGO COE : 1985 Age: 33 Sex: F MR #: [id number] DOS: 08/01/18 1702 Ordering MD: KETTY RANDLE Location: [facility] Room/Bed: PROCEDURE: US Pelvis. CLINICAL INDICATION: pelvic pain TECHNIQUE: Multiple sonographic images of the pelvis were obtained utilizing transabdominal and endovaginal technique. The images were reviewed on a PACS workstation. COMPARISON: None. FINDINGS: The uterus is normal in size. The uterus measures 5.9 x 2.5 x 4.3 cm. There is a small 6 mm cyst within the myometrium.. The endometrial stripe is homogeneous in appearance and has the thickness of 4 mm. There is an IUD within the endometrium in appropriate position. The ovaries are normal in size and echogenicity. Normal Doppler flow is identified in both ovaries. The right ovary measures 2.8 x 2.1 x 2.3 cm. The left ovary measures 2.0 x 1.6 x 1.8 cm. No free fluid is present within the pelvis. RPTAT: AA IMPRESSION: IUD within the endometrium in appropriate position. Small 6 mm cyst within the myometrium.. .Ryan Padilla MD, MD Date Time Electronically viewed and signed by .Ryan Padilla MD, MD on 08/01/2018 17:47 .S/ CC: KETTY RANDLE [id number] DIAGNOSTIC IMAGING REPORT Patient: DIEGO COE : 1985 Age: 33 Sex: F MR #: [id number] DOS: 08/01/18 1702 Ordering MD: KETTY RANDLE Location: [facility] Room/Bed: PROCEDURE: CT Abdomen and Pelvis with Contrast CLINICAL INDICATION: Abdominal pain TECHNIQUE: Transaxial images were obtained through the abdomen and pelvis on a multi-slice scanner following the intravenous administration of 100 ml of Omnipaque-300 contrast. No oral contrast had previously been given. Sagittal and coronal re-formations were subsequently reconstructed. One or more of the following dose reduction techniques were used: - Automated exposure control. - Adjustment of the mA and/or kV according to patient size. - Use of iterative reconstruction technique. DICOM images are available. Radiation dose: CTDIvol = 14.16 mGy; DLP = 844.17 mGy-cm. COMPARISON: Comparison to the previous right upper quadrant abdominal sonogram and pelvic sonogram done 08/01/2018. The previous pelvic sonogram demonstrated in IUD within the endocervical canal and a 6 mm myometrial cyst but was otherwise unremarkable. Previous right upper quadrant abdominal sonogram demonstrated mild hepatomegaly with diffuse fatty infiltration but was otherwise unremarkable. FINDINGS: Lung bases: The visualized lung bases appear unremarkable. Liver: The liver is enlarged with the sagittal diameter of the right lobe measuring 20.2 cm. No focal lesion is identified. The portal veins are patent while the hepatic veins are not yet opacified. Gallbladder: The wall is not thickened. No radiopaque stones are identified. Bile ducts: The intra and extrahepatic bile ducts are normal in caliber. Pancreas: Appears normal with no mass or inflammation evident. Spleen: Normal in size with no focal lesion. Adrenals: Normal with no mass identified. Kidneys, ureters and bladder: The kidneys enhance normally and are normal in size and there is no mass, pathological calcification, or hydronephrosis evident. There is no perinephric stranding. The ureters are normal in caliber and no ureteroliths are identified. The bladder appears unremarkable. Reproductive organs: The uterus is anteverted and an IUD is seen within the endometrial cavity. A 1.5 cm right ovarian cyst is evident. Stomach, bowel, and mesentery: There is been previous gastric surgery. There is no evidence of bowel obstruction or inflammation. Appendix: Portions of a normal vermiform appendix are evident. Peritoneum: No free intraperitoneal fluid or air is identified. Aorta: Normal in caliber with no aneurysmal dilatation. IVC: Unremarkable. Lymph nodes: No pathologically enlarged nodes are identified. Osseous structures: The osseous elements appear intact. IMPRESSION: 1. There appears to been a previous partial gastric resection, possibly a gastric sleeve. There is no evidence of bowel obstruction or inflammation. Portions of a normal vermiform appendix are evident. 2. The kidneys, ureters, and bladder appear unremarkable. 3. The uterus is anteverted. An IUD appears satisfactorily positioned within the uterus. A 1.5 cm right adnexal cyst is noted. 4. Hepatomegaly with no focal lesion. 5. There is no free intraperitoneal fluid or air. 6. Otherwise, unremarkable CT of the abdomen and pelvis. Physician Elina Date Time Electronically viewed and signed by Physician Elina on 08/01/2018 19:26 RH/ CC: KETTY RANDLE [id number] MDM: Because of patient's complaint of epigastric pain with black stool and patient's history of LAP-BAND surgery a year ago, as well as McBurney's tenderness, decision was made to do CT of abdomen and pelvis. Results were within normal limits. Gallbladders and pelvic US results were also WNL. Given patient's history of gastritis, patient was advised that this could be another episode of gastritis versus gastric ulcer disease and she would need to follow- up with her GI for further testing. Patient understood and agreed to this. I have low suspicion for symptomatic anemia, shock, appendicitis, bowel obstruction, ovarian torsion, AAA, pancreatitis, or any other emergent condition. Patient agreed to follow-up with her GI for further testing. Patient discharged with strict ER precautions. Patient advised to follow up with PMD. All questions answered at discharge. Departure Diagnosis: Primary Impression: Epigastric pain Condition: Stable KETTY RANDLE Aug 01, 2018 17:12
[2018-08-01] MEDS ORDERED: HYDROCODONE/APAP (5/325) TAB PO ONE (17:30)
[2018-08-01] MEDS ORDERED: IOHEXOL 300MG/ML 150 ML BTL ONE (18:59)
[2018-08-01] MEDS ORDERED: SOD CHLORIDE 0.9% 100 ML ONE (18:59)
[2018-08-01] MEDS ORDERED: HYDR-4011 PO (19:22)
== END 2018-08-01 19:49 | disposition home or self-care (01) ==
LOC: FTE 15:58
DX: R10.13 Epigastric pain (principal); R10.2 Pelvic and perineal pain
CPT/HCPCS: 36415; 74177; 76705; 76775; 76830; 76856; 80053; 81001; 81025; 83690; 84484; 85025; Q9967; Z7502; Z7610; 81003